=== PATIENT | female | born 1950 | race African-American/Black ===

== ENCOUNTER 2019-04-28 11:31 | Emergency (ER) | payer MEDICARE ==
--- NOTE | 2019-04-28 13:15 | ER Document Report ---
ED General - General Chief Complaint: Shortness Of Breath Stated Complaint: SHORTNESS OF BREATH Time Seen by Provider: 04/28/19 12:09 Primary Care Provider: [facility] [Provider Group] - Follow up as needed MANDY ALMAGUER MD [ACTIVE STAFF] - Follow up in 3-5 days FARHANA ALONSO MD [ACTIVE STAFF] - Follow up in 1 week TRAVEL OUTSIDE OF THE [place] IN LAST 30 DAYS: No - HPI Notes: Patient is a 68-year-old female that presents to the emergency department for chief complaint of shortness of breath. Patient states she has had increased shortness of breath over the last few days. She had a 13-hour car ride from [place] and arrived in town yesterday. Patient states that shortness of breath did increase over the car ride. She states it is worse with any exertion. She denies orthopnea. She denies any associated chest pain or palpitations. Patient denies history of DVT or PE. She is not on any blood thinning medications. She denies history of [place] in the past. She has been compliant with all home medications. Patient denies recent fever chills or cough. She does use albuterol inhaler daily for COPD. Patient is also complaining of bilateral eye watering for the last 6 months. She does not wear contacts or glasses. She denies injury to her eyes. She denies any associated pain or itching in her eyes. Patient reports having a normal stress test 1 year ago. She has no coronary stents or history of bypass. Past Medical History: Glaucoma, hypertension, CHF, COPD Past Surgical History: Negative Social History: Denies tobacco and alcohol use Family History: Reviewed and noncontributory for presenting illness Allergies: Reviewed, see documented allergy list. REVIEW OF SYSTEMS: CONSTITUTIONAL : No fever No chills No diaphoresis No recent illness EENT: No vision changes Watery eyes No congestion No sore throat CARDIOVASCULAR: No chest pain No palpitations RESPIRATORY: shortness of breath No cough No difficulty breathing GASTROINTESTINAL: No abdominal pain No nausea No vomiting No diarrhea GENITOURINARY: No dysuria No hematuria No difficulty urinating MUSCULOSKELETAL: No back pain No leg pain No arm pain SKIN: No rashes No lesions LYMPHATIC: No swollen, enlarged glands. NEUROLOGICAL: No lightheadedness No headache No weakness No paresthesias PSYCHIATRIC: No anxiety No depression PHYSICAL EXAMINATION: Vital signs reviewed, nursing noted reviewed. GENERAL: Well-appearing, well-nourished and in no acute distress. HEAD: Atraumatic, normocephalic. EYES: Slight increased tearing bilaterally, no purulent ocular discharge. No pain with eye movement. PERRLA. extraocular movements intact, sclera anicteric, conjunctiva are normal. ENT: nares patent, oropharynx clear without exudates. Moist mucous membranes. NECK: Normal range of motion, supple without lymphadenopathy LUNGS: Breath sounds have mild wheezing bilaterally. No rhonchi or rales. No respiratory distress. HEART: Regular rate and rhythm without murmurs +2/4 bilateral radial pulses. ABDOMEN: Soft, nontender, normoactive bowel sounds. No rebound, guarding, or rigidity. No masses appreciated. EXTREMITIES: Nontender, good range of motion, no pitting or edema. NEUROLOGICAL: No focal neurological deficits. Moves all extremities spontaneously Motor and sensory grossly intact on exam. PSYCH: Normal mood, normal affect. SKIN: Warm, Dry, normal turgor, no rashes or lesions noted on exposed skin - Related Data Allergies/Adverse Reactions: epinephrine Allergy (Verified 04/28/19 14:27) prednisone Allergy (Verified 04/28/19 14:27) Past Medical History - Social History Smoking Status: Former Smoker Family History: Reviewed & Not Pertinent Physical Exam - Vital signs Vitals: Temp Pulse Resp BP Pulse Ox 98.0 F 63 16 155/90 H 98 04/28/19 11:51 04/28/19 11:51 04/28/19 11:51 04/28/19 11:51 04/28/19 11:51 Course - Re-evaluation Re-evalutation: 04/28/19 13:14 Vitals reviewed. Nursing notes reviewed. Patient has some nonspecific T wave changes on EKG without ST elevation. There is no comparison EKG available. She does have some wheezing on auscultation and history of COPD. Patient will be given albuterol for symptom medic management. She has trace pretibial edema but states this is chronic and unchanged because of her history of CHF. Patient placed on telemetry monitoring. - Vital Signs Vital signs: Temp Pulse Resp BP Pulse Ox 98.0 F 63 21 H 194/104 H 100 04/28/19 11:51 04/28/19 11:51 04/28/19 16:16 04/28/19 15:00 04/28/19 16:16 - Laboratory Result Diagrams: 04/28/19 13:50 04/28/19 13:50 Laboratory results interpreted by me: 04/28/19 04/28/19 04/28/19 13:50 13:50 13:50 Hgb 11.6 L Hct 33.9 L RDW 16.6 H D-Dimer 0.55 H BUN 21 H Est GFR (Non-Af Amer) 56 L - EKG Interpretation by Me Additional EKG results interpreted by me: 04/28/19 13:15 Interpreted by myself 1143: Normal sinus rhythm, rate 62, left axis, LVH, T wave inversion lead III, aVF. No ST elevation Discharge - Discharge Clinical Impression: Shortness of breath, Pulmonary nodules, Watery eyes Condition: Stable Disposition: HOME, SELF-CARE Instructions: Dyspnea, Nonspecific ([facility]) Additional Instructions: Please return to the emergency department if you have any worsening, or concern of your symptoms. Please return to the emergency department if you develop chest pain, difficulty breathing, severe abdominal pain, or ongoing vomiting. Please follow-up with your primary care physician in 2-3 days and any other recommended physicians. If prescribed, take all medications as directed. If you have any questions or concerns do not hesitate to return the emergency department for evaluation. Please follow with Dr. Almaguer for evaluation of your watery eyes The CT scan today showed multiple small lung nodules which are all under 1 cm. you will need to have repeat imaging of your lungs to follow along with the size of these nodules, this is something that will be prescribed by your primary care provider and performed in 3 to 6 months. Referrals: [facility] [Provider Group] - Follow up as needed MANDY ALMAGUER MD [ACTIVE STAFF] - Follow up in 3-5 days FARHANA ALONSO MD [ACTIVE STAFF] - Follow up in 1 week
--- NOTE | 2019-04-28 13:35 | RADIOLOGY REPORT (SQ) ---
EXAM DESCRIPTION: CHEST SINGLE VIEW COMPLETED DATE/TIME: 04/28/2019 1:26 pm REASON FOR STUDY: shortness of breath COMPARISON: None. EXAM PARAMETERS: NUMBER OF VIEWS: One view. TECHNIQUE: Single frontal radiographic view of the chest acquired. RADIATION DOSE: NA LIMITATIONS: None. FINDINGS: LUNGS AND PLEURA: No opacities, masses or pneumothorax. No pleural effusion. MEDIASTINUM AND HILAR STRUCTURES: No masses. Contour normal. HEART AND VASCULAR STRUCTURES: Cardiomegaly. BONES: No acute findings. HARDWARE: None in the chest. OTHER: No other significant finding. IMPRESSION: Cardiomegaly without acute abnormality of the lungs in AP projection. TECHNICAL DOCUMENTATION: JOB ID: [id number] [employer]- All Rights Reserved Reading location - IP/workstation name: [email or web address]
[2019-04-28 14:08] LABS: ABSOLUTE EOSINOPHILS # (AUTO) 0.2 10^3/uL (0.0-0.6); ABSOLUTE LYMPHOCYTES (AUTO) 0.9 10^3/uL (0.5-4.7); ABSOLUTE MONOCYTES (AUTO) 0.4 10^3/uL (0.1-1.4); ABSOLUTE NEUT (AUTO) 2.4 10^3/uL (1.7-8.2); BASOPHILS % (AUTO) 0.9 % (0-2); EOSINOPHILS % (AUTO) 4.9 % (0-6); HEMATOCRIT 33.9 % (36.0-47.0); HEMOGLOBIN 11.6 g/dL (12.0-15.5); LYMPHOCYTES % (AUTO) 23.4 % (13-45); MEAN CORPUSCULAR HEMOGLOBIN 30.4 pg (27.0-33.4); MEAN CORPUSCULAR HGB CONC 34.1 g/dL (32.0-36.0); MEAN CORPUSCULAR VOLUME 89 fl (80-97); MONOCYTES % (AUTO) 9.8 % (3-13); PLATELET COUNT 215 10^3/uL (150-450); RED CELL DISTRIBUTION WIDTH 16.6 % (11.5-14.0); TOTAL CELLS COUNTED % (AUTO) 100 %
[2019-04-28 14:30] LABS: ALANINE AMINOTRANSFERASE 21 U/L (9-52); ALBUMIN 4.2 g/dL (3.5-5.0); ALKALINE PHOSPHATASE 58 U/L (38-126); ANION GAP 9 (5-19); ASPARTATE AMINO TRANSFERASE 27 U/L (14-36); BILIRUBIN,DIRECT 0.3 mg/dL (0.0-0.4); BILIRUBIN,TOTAL 0.8 mg/dL (0.2-1.3); BLOOD UREA NITROGEN 21 mg/dL (7-20); CALCIUM 9.8 mg/dL (8.4-10.2); CARBON DIOXIDE 26 mmol/L (22-30); CHLORIDE 105 mmol/L (98-107); GLUCOSE 98 mg/dL (75-110); POTASSIUM 4.4 mmol/L (3.6-5.0); SODIUM 139.6 mmol/L (137-145); TOTAL PROTEIN 7.7 g/dL (6.3-8.2)
[2019-04-28] MEDS ORDERED: IPRATROPIUM/ALBUTEROL 0.5-2.5 MG/3 ML AMPUL NEB ONE (14:42)
[2019-04-28 15:31] VITALS: BP 194/104
--- NOTE | 2019-04-28 16:31 | RADIOLOGY REPORT (SQ) ---
EXAM DESCRIPTION: CTA CHEST COMPLETED DATE/TIME: 04/28/2019 4:17 pm REASON FOR STUDY: PE study COMPARISON: None. TECHNIQUE: CT scan of the chest performed using helical scanning technique with dynamic intravenous contrast injection. Images reviewed with lung, soft tissue and bone windows. Reconstructed coronal and sagittal MPR images reviewed. Additional 3 dimensional post-processing performed to develop Maximal Intensity Projection images (MO P). All images stored on PACS. All CT scanners at this facility use dose modulation, iterative reconstruction, and/or weight based d osing when appropriate to reduce radiation dose to as low as reasonably achievable (ALARA). [facility]: Dose Right [facility]: CareDose [facility]: Dose Right [facility]: Teradose 4D [facility]: Ubiquigent CONTRAST TYPE AND DOSE: contrast/concentration: Isovue 350.00 mg/ml; Total Contrast Delivered: 66.0 ml; Total Saline Delivered: 80.0 ml Contrast bolus optimized for the pulmonary arteries. Not diagnostic for the aorta. RENAL FUNCTION: GFR > 60. RADIATION DOSE: CT Rad equipment meets quality standard of care and radiation dose reduction techniq ues were employed. CTDIvol: 14.3 - 23.2 mGy. DLP: 531 mGy-cm. . LIMITATIONS: Moderate patient motion -breathing artifact. FINDINGS: LUNGS AND PLEURA: No pneumothorax. Scattered parenchymal and subpleural ground-glass and subcentimeter solid nodules in both lungs. No consolidation or pleural effusion. Linear atelectasis in the left lower lobe. . AORTA AND GREAT VESSELS: No aneurysm. Contrast bolus not optimized for the aorta. HEART: No pericardial effusion. No significant coronary artery calcifications. PULMONARY ARTERIES: No emboli visualized in the central pulmonary arteries. Patient breathing motion limits evaluation of the segmental branches. HILAR AND MEDIASTINAL STRUCTURES: No identified masses or abnormal nodes. HARDWARE: None in the chest. UPPER ABDOMEN: Atrophic left kidney. Limited exam. THYROID AND OTHER SOFT TISSUES: No masses. No adenopathy. BONES: No acute or significant finding. 3D MIPS: Confirm above findings. OTHER: No other significant finding. IMPRESSION: No emboli visualized in the central pulmonary arteries. Patient breathing motion limits evaluation of the segmental branches. Scattered parenchymal and subpleural ground-glass and subcentimeter solid nodules in both lungs, nons pecific. No consolidation or pleural effusion. Linear atelectasis in the left lower lobe. COMMENT: Follow-up CT recommended in 3 to 4 months for pulmonary nodules. Quality ID # [id number]: Final reports with documentation of one or more dose reduction techniques (e.g., Au tomated exposure control, adjustment of the mA and/or kV according to patient size, use of iterative reconstruction technique) TECHNICAL DOCUMENTATION: JOB ID: [id number] [place]-72 2010 [employer]- All Rights Reserved Reading location - IP/workstation name: [email or web address]
--- NOTE | 2019-04-28 23:27 | EKG REPORT ---
SEVERITY:- ABNORMAL ECG - SINUS RHYTHM LEFT AXIS DEVIATION LEFT VENTRICULAR HYPERTROPHY NONSPECIFIC T ABNORMALITIES, INFERIOR LEADS : Confirmed by: Chasity Gutierrez MD 28-Apr-2019 23:26:54
== END 2019-04-28 17:18 | disposition home or self-care (01) ==
LOC: ER 11:31
DX: J44.9 Chronic obstructive pulmonary disease, unspecified (principal); Z79.899 Other long term (current) drug therapy; I11.0 Hypertensive heart disease with heart failure; I50.9 Heart failure, unspecified; R06.02 Shortness of breath; R91.8 Other nonspecific abnormal finding of lung field; H57.89 Other specified disorders of eye and adnexa; R60.0 Localized edema; Z86.69 Personal history of other diseases of the nervous system and sense organs; Z88.8 Allergy status to other drugs, medicaments and biological substances; Z87.891 Personal history of nicotine dependence
CPT/HCPCS: 93005; 94640; 99285; 36415; 85025; 80053; 84484; 85379; 71045; 71275; 93010; A9270; J7620

== ENCOUNTER 2019-05-15 23:21 | Emergency (ER) | payer MEDICARE, MEDICAID ==
[2019-05-16] MEDS ORDERED: IPRATROPIUM/ALBUTEROL 0.5-2.5 MG/3 ML AMPUL NEB ONE (00:32)
[2019-05-16 00:59] LABS: ABSOLUTE EOSINOPHILS # (AUTO) 0.2 10^3/uL (0.0-0.6); ABSOLUTE LYMPHOCYTES (AUTO) 1.1 10^3/uL (0.5-4.7); ABSOLUTE MONOCYTES (AUTO) 0.4 10^3/uL (0.1-1.4); ABSOLUTE NEUT (AUTO) 1.7 10^3/uL (1.7-8.2); BASOPHILS % (AUTO) 1.2 % (0-2); EOSINOPHILS % (AUTO) 5.9 % (0-6); HEMATOCRIT 33.1 % (36.0-47.0); HEMOGLOBIN 11.2 g/dL (12.0-15.5); LYMPHOCYTES % (AUTO) 31.5 % (13-45); MEAN CORPUSCULAR HEMOGLOBIN 30.4 pg (27.0-33.4); MEAN CORPUSCULAR HGB CONC 33.9 g/dL (32.0-36.0); MEAN CORPUSCULAR VOLUME 90 fl (80-97); MONOCYTES % (AUTO) 12.1 % (3-13); PLATELET COUNT 205 10^3/uL (150-450); RED BLOOD COUNT 3.68 10^6/uL (3.72-5.28); RED CELL DISTRIBUTION WIDTH 16.3 % (11.5-14.0); SEGMENTED NEUTROPHILS % (AUTO) 49.3 % (42-78); TOTAL CELLS COUNTED % (AUTO) 100 %; WHITE BLOOD COUNT 3.4 10^3/uL (4.0-10.5)
[2019-05-16 01:06] LABS: INTERNATIONAL RATION (INR) 0.97; PROTHROMBIN TIME 12.9 SEC (11.4-15.4)
[2019-05-16 01:07] LABS: PARTIAL THROMBOPLASTIN TIME 28.1 SEC (23.5-35.8)
[2019-05-16 01:18] LABS: ALANINE AMINOTRANSFERASE 23 U/L (9-52); ALBUMIN 4.1 g/dL (3.5-5.0); ALKALINE PHOSPHATASE 53 U/L (38-126); ANION GAP 7 (5-19); ASPARTATE AMINO TRANSFERASE 19 U/L (14-36); BILIRUBIN,DIRECT 0.2 mg/dL (0.0-0.4); BILIRUBIN,TOTAL 0.5 mg/dL (0.2-1.3); BLOOD UREA NITROGEN 19 mg/dL (7-20); CALCIUM 9.5 mg/dL (8.4-10.2); CARBON DIOXIDE 29 mmol/L (22-30); CHLORIDE 103 mmol/L (98-107); GLUCOSE 96 mg/dL (75-110); SODIUM 138.5 mmol/L (137-145); TOTAL PROTEIN 7.3 g/dL (6.3-8.2)
[2019-05-16] MEDS ORDERED: CLONIDINE HCL 0.1 MG TABLET PO ONE (01:21)
[2019-05-16 01:30] LABS: NT PRO BNP 242 pg/mL (5-900)
[2019-05-16 01:32] LABS: TROPONIN I < 0.012 ng/mL
--- NOTE | 2019-05-16 01:43 | RADIOLOGY REPORT (SQ) ---
EXAM DESCRIPTION: XR CHEST 1 VIEW COMPLETED DATE/TME: 05/16/2019 00:31 CLINICAL HISTORY: 68 years Female, SOB COMPARISON:Apr 28 2019, CR and CT NUMBER OF VIEWS/TECHNIQUE: 1/AP FINDINGS: Small stable blunting of the right costophrenic angle. Atherosclerosis. Mildly enlarged cardiac silhouette. Intact bony thorax. IMPRESSION: 1. No acute cardiopulmonary findings. 2. Please also see abnormal CTA chest, 04/28/2019.
--- NOTE | 2019-05-16 02:04 | ER Document Report ---
ED Respiratory Problem - General Chief Complaint: Shortness Of Breath Stated Complaint: ASTHMA,AMAURY HORSE IN LEGS AND RIGHT HAND Time Seen by Provider: 05/16/19 00:23 Mode of Arrival: Ambulatory Information source: Patient TRAVEL OUTSIDE OF THE [place] IN LAST 30 DAYS: No - HPI Patient complains to provider of: COPD, Short of breath Onset: Just prior to arrival Duration: Gone now Quality of pain: No pain Severity: None Pain Level: Denies Context: Hx COPD. denies: DVT Short of Breath: Mild Associated symptoms: Other - Leg cramps. Similar symptoms previously: Yes Recently seen / treated by doctor: No - Related Data Allergies/Adverse Reactions: epinephrine Allergy (Verified 04/28/19 14:27) prednisone Allergy (Verified 04/28/19 14:27) Past Medical History - General Information source: Patient - Social History Smoking Status: Unknown if Ever Smoked Family History: Reviewed & Not Pertinent Renal/ Medical History: Denies: Hx Peritoneal Dialysis Review of Systems - Review of Systems Constitutional: No symptoms reported EENT: No symptoms reported Cardiovascular: No symptoms reported Respiratory: Short of breath Gastrointestinal: No symptoms reported Genitourinary: No symptoms reported Female Genitourinary: No symptoms reported Musculoskeletal: No symptoms reported Skin: No symptoms reported Hematologic/Lymphatic: No symptoms reported Neurological/Psychological: No symptoms reported -: Yes All other systems reviewed and negative Physical Exam - Vital signs Vitals: Temp Pulse Resp BP Pulse Ox 98.3 F 67 18 161/90 H 95 05/15/19 23:49 05/15/19 23:49 05/15/19 23:49 05/15/19 23:49 05/15/19 23:49 Interpretation: Normal - General General appearance: Appears well, Alert - HEENT Head: Normocephalic, Atraumatic Eyes: Normal Pupils: PERRL - Respiratory Respiratory status: No respiratory distress Chest status: Nontender Breath sounds: Normal Chest palpation: Normal - Cardiovascular Rhythm: Regular Heart sounds: Normal auscultation Murmur: No - Abdominal Inspection: Normal Distension: No distension Bowel sounds: Normal Tenderness: Nontender Organomegaly: No organomegaly - Back Back: Normal, Nontender - Extremities General upper extremity: Normal inspection, Nontender, Normal color, Normal ROM, Normal temperature General lower extremity: Normal inspection, Nontender, Normal color, Normal ROM, Normal temperature, Normal weight bearing. No: Tara's sign - Neurological Neuro grossly intact: Yes Cognition: Normal Orientation: AAOx4 [place] Coma Scale Eye Opening: Spontaneous [place] Coma Scale Verbal: Oriented [place] Coma Scale Motor: Obeys Commands Sahra Coma Scale Total: 15 Speech: Normal Motor strength normal: LUE, RUE, LLE, RLE Sensory: Normal - Psychological Associated symptoms: Normal affect, Normal mood - Skin Skin Temperature: Warm Skin Moisture: Dry Skin Color: Normal Course - Vital Signs Vital signs: Temp Pulse Resp BP Pulse Ox 98.9 F 67 12 156/92 H 97 05/16/19 02:51 05/15/19 23:49 05/16/19 02:51 05/16/19 02:51 05/16/19 02:51 - Laboratory Result Diagrams: 05/16/19 00:50 05/16/19 00:50 Laboratory results interpreted by me: 05/16/19 05/16/19 00:50 00:50 WBC 3.4 L RBC 3.68 L Hgb 11.2 L Hct 33.1 L RDW 16.3 H Est GFR ( Amer) 52 L Est GFR (Non-Af Amer) 43 L - Diagnostic Test Radiology reviewed: Reports reviewed Discharge - Discharge Clinical Impression: COPD exacerbation Condition: Stable Disposition: HOME, SELF-CARE Instructions: Chronic Obstructive Lung Disease ([facility]) Additional Instructions: Please follow-up with your primary doctor in the morning. Return to the ED if your condition worsens.
[2019-05-16 02:55] VITALS: BP 156/92
== END 2019-05-16 02:58 | disposition home or self-care (01) ==
LOC: ER 23:21
DX: J44.1 Chronic obstructive pulmonary disease with (acute) exacerbation (principal)
CPT/HCPCS: 94640; 99285; 36415; 85025; 85610; 85730; 80053; 84484; 83880; 71045; A9270 ×2; J7620

== ENCOUNTER 2019-06-06 21:44 | Emergency (ER) | payer MEDICARE ==
[2019-06-07] MEDS ORDERED: ALBUTEROL SULFATE 0.083% NEB 2.5 MG/3 ML AMPUL NEB ONE (02:14)
[2019-06-07] MEDS ORDERED: ASPIRIN 81 MG TABLET, CHEWABLE PO ONE (02:14)
[2019-06-07 03:10] LABS: ABSOLUTE EOSINOPHILS # (AUTO) 0.3 10^3/uL (0.0-0.6); ABSOLUTE LYMPHOCYTES (AUTO) 1.2 10^3/uL (0.5-4.7); ABSOLUTE MONOCYTES (AUTO) 0.4 10^3/uL (0.1-1.4); ABSOLUTE NEUT (AUTO) 1.6 10^3/uL (1.7-8.2); BASOPHILS % (AUTO) 1.2 % (0-2); EOSINOPHILS % (AUTO) 8.5 % (0-6); HEMATOCRIT 33.7 % (36.0-47.0); HEMOGLOBIN 11.3 g/dL (12.0-15.5); LYMPHOCYTES % (AUTO) 33.4 % (13-45); MEAN CORPUSCULAR HGB CONC 33.5 g/dL (32.0-36.0); MEAN CORPUSCULAR VOLUME 90 fl (80-97); PLATELET COUNT 218 10^3/uL (150-450); RED BLOOD COUNT 3.76 10^6/uL (3.72-5.28); RED CELL DISTRIBUTION WIDTH 16.3 % (11.5-14.0); SEGMENTED NEUTROPHILS % (AUTO) 44.9 % (42-78); TOTAL CELLS COUNTED % (AUTO) 100 %; WHITE BLOOD COUNT 3.6 10^3/uL (4.0-10.5)
[2019-06-07 03:26] LABS: ALANINE AMINOTRANSFERASE 26 U/L (9-52); ALBUMIN 4.1 g/dL (3.5-5.0); ALKALINE PHOSPHATASE 62 U/L (38-126); ANION GAP 6 (5-19); ASPARTATE AMINO TRANSFERASE 21 U/L (14-36); BILIRUBIN,DIRECT 0.1 mg/dL (0.0-0.4); BILIRUBIN,TOTAL 0.5 mg/dL (0.2-1.3); BLOOD UREA NITROGEN 15 mg/dL (7-20); CALCIUM 9.6 mg/dL (8.4-10.2); CARBON DIOXIDE 26 mmol/L (22-30); CHLORIDE 105 mmol/L (98-107); CREATINE KINASE 155 U/L (30-135); GLUCOSE 109 mg/dL (75-110); POTASSIUM 3.8 mmol/L (3.6-5.0); TOTAL PROTEIN 7.2 g/dL (6.3-8.2)
[2019-06-07 03:38] LABS: CREATINE KINASE MB 1.32 ng/mL (<4.55); NT PRO BNP 290 pg/mL (5-900); TROPONIN I < 0.012 ng/mL
--- NOTE | 2019-06-07 03:58 | RADIOLOGY REPORT (SQ) ---
CLINICAL HISTORY: SOB, wheezing COMPARISON: May 16, 2019. TECHNIQUE: XR CHEST 2 VIEWS 06/07/2019 2:14 AM CDT FINDINGS: The heart is enlarged. Lungs are clear without consolidation, atelectasis, mass or edema. There is no pleural effusion. There is no pneumothorax. There are no acute osseous findings. IMPRESSION: Clear lungs.
--- NOTE | 2019-06-07 04:19 | ER Document Report ---
Entered by MELLISSA BETHEA SCRIBE 06/07/19 0206 Acting as scribe for:JUHI WHITTINGTON DO ED Respiratory Problem - General Chief Complaint: Breathing Difficulty Stated Complaint: TROUBLE BREATHING Time Seen by Provider: 06/07/19 01:44 Information source: Patient Notes: 68-year-old female who presents to the emergency department today with complaints of shortness of breath with an associated cough for the last x5 days. Patient states she has had chills but no fevers. Patient states she feels like she is congested in her chest and has had an associated chest tightness as well as tightness in her throat. Patient states she was admitted to this hospital a few weeks ago for a COPD exacerbation. Patient is unable to answer how her symptoms today compare to that admission. Patient states her cough has been productive with green sputum. Patient denies any blood in her sputum. TRAVEL OUTSIDE OF THE [place] IN LAST 30 DAYS: No - Related Data Allergies/Adverse Reactions: epinephrine Allergy (Verified 04/28/19 14:27) prednisone Allergy (Verified 04/28/19 14:27) Past Medical History - General Information source: Patient - Social History Smoking Status: Former Smoker Cigarette use (# per day): No Chew tobacco use (# tins/day): No Frequency of alcohol use: None Drug Abuse: None Lives with: Family Family History: Reviewed & Not Pertinent - Past Medical History Cardiac Medical History: Reports: Hx Congestive Heart Failure Pulmonary Medical History: Reports: Hx Asthma, Hx COPD Surgical Hx: Negative Review of Systems - Review of Systems Constitutional: See HPI, Chills. denies: Fever EENT: No symptoms reported Cardiovascular: See HPI, Chest pain Respiratory: See HPI, Cough, Short of breath, Wheezing, Other - chest feels tig ht Gastrointestinal: No symptoms reported Genitourinary: No symptoms reported Female Genitourinary: No symptoms reported Musculoskeletal: No symptoms reported Skin: No symptoms reported Hematologic/Lymphatic: No symptoms reported Neurological/Psychological: No symptoms reported -: Yes All other systems reviewed and negative Physical Exam - Vital signs Vitals: Temp Pulse Resp BP Pulse Ox 97.6 F 73 18 166/86 H 96 06/06/19 22:39 06/06/19 22:39 06/06/19 22:39 06/06/19 22:39 06/06/19 22:39 - Notes Notes: PHYSICAL EXAM GENERAL: Alert, interacts well. No acute distress. HEAD: Normocephalic, atraumatic. EYES: Pupils equal, round, and reactive to light. Extraocular movements intact. ENT: Oral mucosa moist, tongue midline. No posterior oropharynx erythema, exudate, or tonsilar hypertrophy. NECK: Full range of motion. Supple. Trachea midline. LUNGS: Clear to auscultation bilaterally, no wheezes, rales, or rhonchi. No respiratory distress. HEART: Regular rate and rhythm. No murmurs, gallops, or rubs. ABDOMEN: Soft, non-tender. Non-distended. Bowel sounds present in all 4 quadrants. No guarding, rigidity, or rebound. BACK: Increased thoracic kyphosis. EXTREMITIES: Moves all 4 extremities spontaneously. No edema, radial and dorsalis pedis pulses 2/4 bilaterally. No cyanosis. NEUROLOGICAL: Alert and oriented x3. Normal speech. PSYCH: Normal affect, normal mood. SKIN: Warm, dry, normal turgor. No rashes or lesions noted. Course - Re-evaluation Re-evalutation: 06/07/19 04:08 CBC shows slight leukopenia with white count of 3.6, mild anemia with hemoglobin of 11.3, this is unchanged for the past month and a half, sodium minimally low, cardiac enzymes negative, chest x-ray shows no acute process. Patient does not appear short of breath during my examination, vital signs do not support any hypoxia, tachypnea or tachycardia. Given the patient's history of asthma and COPD patient will be started on a burst of steroids, encouraged to use inhalers and discharged to home. 06/07/19 04:18 Patient states she is allergic to prednisone, states that she has a headache and muscle cramps. Discussed with patient that this is not a true allergic reaction. More likely a side effect. Started the patient on prednisolone instead. 06/07/19 04:18 On recheck patient states she feels much better, there is no wheezing in her lungs, she has not been tachypneic or tachycardic or hypoxic. Discharged home. - Vital Signs Vital signs: Temp Pulse Resp BP Pulse Ox 97.6 F 73 18 166/86 H 96 06/06/19 22:39 06/06/19 22:39 06/06/19 22:39 06/06/19 22:39 06/06/19 22:39 - Laboratory Result Diagrams: 06/07/19 03:00 06/07/19 03:00 Laboratory results interpreted by me: 06/07/19 06/07/19 03:00 03:00 WBC 3.6 L Hgb 11.3 L Hct 33.7 L RDW 16.3 H Eosinophils % 8.5 H Absolute Neutrophils 1.6 L Sodium 136.9 L Creatine Kinase 155 H - EKG Interpretation by Me Additional EKG results interpreted by me: 06/07/19 04:10 EKG shows sinus rhythm at a rate of 78, left axis deviation, left ventricular hypertrophy, ST segment elevations isolated to V2, no other ST segment elevations or depressions, no T wave inversions per my interpretation. Discharge - Discharge Clinical Impression: Acute asthma exacerbation Qualifiers: Asthma severity: mild Asthma persistence: intermittent Qualified Code(s): J45.21 - Mild intermittent asthma with (acute) exacerbation Hypertension Qualifiers: Hypertension type: unspecified Qualified Code(s): I10 - Essential (primary) hypertension Condition: Stable Disposition: HOME, SELF-CARE Additional Instructions: Please use your inhaler 2 puffs every 4 hours as needed. If your symptoms are not improving within the next 2 days or if your symptoms worsen at any point please take the steroids as directed until they are gone. The steroid I have written you for is different than the prednisone from which you have had headaches and muscle cramps in the past. You may not get headaches and muscle cramps from this. You did not have a true allergic reaction to steroids in the past. Return for fevers, worsening shortness of breath, chest pain or any new or jeet rning symptoms. Prescriptions: Prednisolone 20 mg PO DAILY #20 tablet I personally performed the services described in the documentation, reviewed and edited the documentation which was dictated to the scribe in my presence, and it accurately records my words and actions.
[2019-06-07 04:25] VITALS: BP 161/85
--- NOTE | 2019-06-07 23:11 | EKG REPORT ---
SEVERITY:- ABNORMAL ECG - SINUS RHYTHM LEFT ATRIAL ABNORMALITY LEFT AXIS DEVIATION LEFT VENTRICULAR HYPERTROPHY : Confirmed by: Real Anand 07-Jun-2019 23:10:30
== END 2019-06-07 04:37 | disposition home or self-care (01) ==
LOC: ER 21:44
DX: J45.21 Mild intermittent asthma with (acute) exacerbation (principal); J44.9 Chronic obstructive pulmonary disease, unspecified; I10 Essential (primary) hypertension; R06.02 Shortness of breath; R05 Cough; R09.89 Other specified symptoms and signs involving the circulatory and respiratory systems; Z87.891 Personal history of nicotine dependence; I50.9 Heart failure, unspecified; R51 Headache; R25.2 Cramp and spasm
CPT/HCPCS: 93005; 94640; 99285; 36415; 82553; 82550; 85025; 80053; 84484; 83880; 71046; 93010; A9270 ×2

== ENCOUNTER 2019-07-07 08:47 | Emergency (ER) | payer MEDICARE ==
[2019-07-07] MEDS ORDERED: CLONIDINE HCL 0.2 MG TABLET PO ONE (09:25)
--- NOTE | 2019-07-07 09:33 | ER Document Report ---
Entered by MELLISSA BETHEA SCRIBE 07/07/19 0930 Acting as scribe for:CORIE BARCENAS MD ED Respiratory Problem - General Chief Complaint: Shortness Of Breath Stated Complaint: SHORTNESS OF BREATH Time Seen by Provider: 07/07/19 09:12 Mode of Arrival: Ambulatory Information source: Patient Notes: Patient is a 68 year old female that presents to the emergency department today with complaints of shortness of breath for the last x3 days with an associated cough. Patient states she is bringing up thick malodorous white sputum with her cough. Patient states her proair inhaler has improved her shortness of breath. Patient states she moved here from [place] about x3 months ago and has not yet gotten a PCP here. Patient reports she has not run out of her medications despite not having a PCP. Patient reports taking 50 mg of hydralazine at 0400 this morning and 0.3 mg of clonidine 0600 this morning. Patient mentions having chills but denies fevers. TRAVEL OUTSIDE OF THE [place] IN LAST 30 DAYS: No - Related Data Allergies/Adverse Reactions: epinephrine Allergy (Verified 07/07/19 08:49) prednisone Allergy (Verified 07/07/19 08:49) Past Medical History - General Information source: Patient - Social History Smoking Status: Former Smoker Cigarette use (# per day): No Frequency of alcohol use: None Drug Abuse: None Lives with: Family Family History: Reviewed & Not Pertinent - Past Medical History Cardiac Medical History: Reports: Hx Congestive Heart Failure, Hx Hypertension Pulmonary Medical History: Reports: Hx Asthma, Hx COPD Review of Systems - Review of Systems Constitutional: See HPI, Chills. denies: Fever EENT: No symptoms reported Cardiovascular: No symptoms reported Respiratory: See HPI, Cough, Short of breath, Sputum Gastrointestinal: No symptoms reported Genitourinary: No symptoms reported Female Genitourinary: No symptoms reported Musculoskeletal: No symptoms reported Skin: No symptoms reported Hematologic/Lymphatic: No symptoms reported Neurological/Psychological: No symptoms reported -: Yes All other systems reviewed and negative Physical Exam - Vital signs Vitals: Temp Pulse Resp BP Pulse Ox 98.2 F 64 16 180/90 H 97 07/07/19 08:52 07/07/19 08:52 07/07/19 08:52 07/07/19 08:52 07/07/19 08:52 - Notes Notes: Physical Exam: General: Alert, appears well. HEENT: Normocephalic. Atraumatic. PERRL. Extraocular movements intact. Oropharynx clear. Neck: Supple. Non-tender. Respiratory: No respiratory distress. Clear and equal breath sounds bilaterally. Cardiovascular: Regular rate and rhythm. Abdominal: Normal Inspection. Non-tender. No distension. Normal Bowel Sounds. Back: Increased thoracic kyphosis Extremities: Moves all four extremities. Upper extremities: Normal inspection. Normal ROM. Lower extremities: Normal inspection. No edema. Normal ROM. Neurological: Normal cognition. AAOx4. Normal speech. Psychological: Normal affect. Normal Mood. Skin: Warm. Dry. Normal color. Course - Re-evaluation Re-evalutation: 07/07/19 13:20 At this time the patient's blood pressure using a manual cuff was 160/100. Her pulse oximetry is 98% on room air. Her chest x-ray does not show any acute abnormalities. Her white blood cell count is quite low and does not suggest an infectious process. I really did not hear much if any wheezing on initial auscultation. I feel it is safe to send patient home and let her continue all of her regular medications including her inhalers as needed. Patient states that she has plenty of medicine and her pro-air inhaler and does not need another prescrip tion. She is encouraged to obtain a local medical doctor to help manage her medical problems. She is also encouraged to get a blood pressure cuff so that she can monitor her blood pressure at home. - Vital Signs Vital signs: Temp Pulse Resp BP Pulse Ox 98.2 F 64 15 198/96 H 100 07/07/19 08:52 07/07/19 08:52 07/07/19 10:05 07/07/19 10:05 07/07/19 10:05 - Laboratory Result Diagrams: 07/07/19 09:35 07/07/19 09:35 Laboratory results interpreted by me: 07/07/19 07/07/19 09:35 09:35 WBC 2.8 L RBC 3.60 L Hgb 10.9 L Hct 32.3 L RDW 16.7 H [place] % (Auto) 13.1 H Eos % (Auto) 7.8 H Absolute Neuts (auto) 1.3 L Carbon Dioxide 32 H BUN 22 H Est GFR ( Amer) 54 L Est GFR (MDRD) Non-Af 45 L Creatine Kinase 180 H - Diagnostic Test Radiology reviewed: Image reviewed, Reports reviewed - Chest x-ray shows cardiomegaly with no other abnormalities. - EKG Interpretation by Me EKG shows normal: Sinus rhythm, [place], Intervals, QRS Complexes, ST-T Waves Rate: Normal - 56 Rhythm: NSR Voltage: Consistant with LVH Discharge - Discharge Clinical Impression: Bronchitis High blood pressure Qualifiers: Hypertension type: essential hypertension Qualified Code(s): I10 - Essential (primary) hypertension Condition: Stable Disposition: HOME, SELF-CARE Additional Instructions: Bronchitis You have acute bronchitis. This disease is an infection or inflammation of the air passageways in your lungs. Symptoms usually include cough, low grade fever, shortness of breath, and wheezing. The cough usually persists for a couple of weeks. Most cases of bronchitis get better without antibiotics. We prescribe antibiotics when we believe bacteria are damaging your airways, or if there's high risk the bronchitis will worsen into pneumonia. Increase your fluid intake. A cool mist humidifier may make your lungs more comfortable. An expectorant (cough medicine that loosens phlegm) can help. If you smoke, STOP!!! Recovery from bronchitis can be somewhat slow, but you should see improvement within a day or two. Repeated episodes of bronchitis may result in lung damage -- for example, chronic bronchitis, recurrent pneumonias, or emphysema. Call the doctor if you develop increasing fever, shortness of breath, chest pain, bloody sputum, or otherwise worsen. If you have not improved at all after several days, contact the physician. Be sure you do not miss any of your regular medications. Try taking the generic version of Delsym DM to help control your coughing. Use your inhaler for wheezing as needed. Check your blood pressure at least on a daily basis to be sure that you have your blood pressure under control. Follow-up with a local medical doctor to help manage your blood pressure and marti athing problems. RETURN TO THE EMERGENCY ROOM IF ANY NEW OR WORSENING SYMPTOMS. Stephania Attestation: 07/07/19 09:51 I personally performed the services described in the documentation, reviewed and edited the documentation which was dictated to the scribe in my presence, and it accurately records my words and actions. I personally performed the services described in the documentation, reviewed and edited the documentation which was dictated to the scribe in my presence, and it accurately records my words and actions.
--- NOTE | 2019-07-07 09:59 | RADIOLOGY REPORT (SQ) ---
EXAM DESCRIPTION: CHEST SINGLE VIEW COMPLETED DATE/TIME: 07/07/2019 9:46 am REASON FOR STUDY: SOB COMPARISON: 06/07/2019 NUMBER OF VIEWS: One view. TECHNIQUE: Single frontal radiographic view of the chest acquired. LIMITATIONS: None. FINDINGS: LUNGS AND PLEURA: No opacities, masses or pneumothorax. No pleural effusion. MEDIASTINUM AND HILAR STRUCTURES: No masses. Contour normal. HEART AND VASCULAR STRUCTURES: Heart is enlarged. No failure. BONES: No acute findings. HARDWARE: None in the chest. OTHER: No other significant finding. IMPRESSION: Cardiomegaly. No failure. No consolidation. TECHNICAL DOCUMENTATION: JOB ID: [id number] [employer]- All Rights Reserved Reading location - IP/workstation name: [email or web address]
[2019-07-07 10:09] LABS: APPEARANCE,URINE CLEAR; BILIRUBIN,URINE NEGATIVE (NEGATIVE); COLOR,URINE STRAW; GLUCOSE, URINE NEGATIVE (NEGATIVE); KETONES,URINE NEGATIVE (NEGATIVE); LEUKOCYTE ESTERASE,URINE NEGATIVE (NEGATIVE); NITRITE,URINE NEGATIVE (NEGATIVE); PROTEIN,URINE NEGATIVE (NEGATIVE); URINE SPECIFIC GRAVITY 1.009; UROBILINOGEN,URINE NEGATIVE mg/dL (<2.0)
[2019-07-07 10:10] LABS: ABSOLUTE EOSINOPHILS # (AUTO) 0.2 10^3/uL (0.0-0.6); ABSOLUTE LYMPHOCYTES (AUTO) 0.9 10^3/uL (0.5-4.7); ABSOLUTE MONOCYTES (AUTO) 0.4 10^3/uL (0.1-1.4); ABSOLUTE NEUT (AUTO) 1.3 10^3/uL (1.7-8.2); EOSINOPHILS % (AUTO) 7.8 % (0-6); HEMATOCRIT 32.3 % (36.0-47.0); HEMOGLOBIN 10.9 g/dL (12.0-15.5); LYMPHOCYTES % (AUTO) 32.4 % (13-45); MEAN CORPUSCULAR HEMOGLOBIN 30.4 pg (27.0-33.4); MEAN CORPUSCULAR HGB CONC 33.8 g/dL (32.0-36.0); MEAN CORPUSCULAR VOLUME 90 fl (80-97); MONOCYTES % (AUTO) 13.1 % (3-13); PLATELET COUNT 243 10^3/uL (150-450); RED CELL DISTRIBUTION WIDTH 16.7 % (11.5-14.0); SEGMENTED NEUTROPHILS % (AUTO) 45.7 % (42-78); TOTAL CELLS COUNTED % (AUTO) 100 %; WHITE BLOOD COUNT 2.8 10^3/uL (4.0-10.5)
[2019-07-07 10:32] LABS: ALBUMIN 4.2 g/dL (3.5-5.0); ALKALINE PHOSPHATASE 56 U/L (38-126); ANION GAP 6 (5-19); ASPARTATE AMINO TRANSFERASE 27 U/L (14-36); BILIRUBIN,DIRECT 0.3 mg/dL (0.0-0.4); BILIRUBIN,TOTAL 0.6 mg/dL (0.2-1.3); BLOOD UREA NITROGEN 22 mg/dL (7-20); CALCIUM 9.5 mg/dL (8.4-10.2); CARBON DIOXIDE 32 mmol/L (22-30); CHLORIDE 101 mmol/L (98-107); CREATINE KINASE 180 U/L (30-135); GLUCOSE 99 mg/dL (75-110); POTASSIUM 4.2 mmol/L (3.6-5.0); TOTAL PROTEIN 7.7 g/dL (6.3-8.2)
[2019-07-07 10:44] LABS: CREATINE KINASE MB 1.51 ng/mL (<4.55)
[2019-07-07 10:48] LABS: TROPONIN I < 0.012 ng/mL
--- NOTE | 2019-07-07 13:18 | EKG REPORT ---
SEVERITY:- ABNORMAL ECG - SINUS RHYTHM LEFT VENTRICULAR HYPERTROPHY : Confirmed by: Calixto Torres MD 07-Jul-2019 13:17:06
[2019-07-07 14:26] VITALS: BP 186/112
== END 2019-07-07 14:28 | disposition home or self-care (01) ==
LOC: ER 08:47
DX: J44.0 Chronic obstructive pulmonary disease with (acute) lower respiratory infection (principal); R06.02 Shortness of breath; R05 Cough; Z79.899 Other long term (current) drug therapy; Z87.891 Personal history of nicotine dependence; I50.9 Heart failure, unspecified; I11.0 Hypertensive heart disease with heart failure
CPT/HCPCS: 93005; 99285; 36415; 82553; 82550; 83735; 85025; 80053; 81001; 84484; 71045; 93010; A9270

== ENCOUNTER 2019-08-07 02:37 | Emergency (ER) | payer MEDICARE ==
[2019-08-07] MEDS ORDERED: DEXAMETHASONE SOD PHOS INJ 10 MG/1 ML VIAL IV ONE (04:47)
[2019-08-07] MEDS: ALBUTEROL SULFATE 0.083% NEB 2.5 MG/3 ML AMPUL NEB ONE ×2 (05:07→05:12)
--- NOTE | 2019-08-07 05:14 | ER Document Report ---
ED Medical Screen (RME) - General Chief Complaint: Breathing Difficulty Stated Complaint: TROUBLE BREATHING/HEADACHE Time Seen by Provider: 08/07/19 05:06 Notes: 68-year-old female with chief complaint of shortness of breath. She states that she always has a cough and also some shortness of breath but she feels like it is harder to catch her breath over the past couple of days. She denies fever, chest pain, swelling in her legs. She states her blood pressures have been really elevated recently. She states she has not been taking her Lasix, she does have a history of CHF, COPD, asthma. She is not on home oxygen. She states she is only taking her clonidine and hydralazine along with intermittent albuterol. TRAVEL OUTSIDE OF THE [place] IN LAST 30 DAYS: No - Related Data Allergies/Adverse Reactions: epinephrine Allergy (Verified 07/07/19 08:49) prednisone Allergy (Verified 07/07/19 08:49) Past Medical History - Social History Frequency of alcohol use: None - Past Medical History Cardiac Medical History: Reports: Hx Congestive Heart Failure, Hx Hypertension Pulmonary Medical History: Reports: Hx Asthma, Hx COPD Renal/ Medical History: Denies: Hx Peritoneal Dialysis Physical Exam - Vital signs Vitals: Temp Pulse Resp BP Pulse Ox 97.7 F 63 20 179/92 H 99 08/07/19 02:50 08/07/19 02:50 08/07/19 02:50 08/07/19 02:50 08/07/19 02:50 - Respiratory Respiratory status: No respiratory distress Breath sounds: Normal. No: Decreased air movement, Wheezing Course - Re-evaluation Re-evalutation: Patient with no tachypnea, no wheezing, no respiratory distress on evaluation. She is very hypertensive and reporting dyspnea especially dyspnea on exertion. She does have a history of CHF and has not been taking her Lasix. Work-up pending. I have greeted and performed a rapid initial assessment of this patient. A comprehensive ED assessment and evaluation of the patient, analysis of test results and completion of the medical decision making process will be conducted by additional ED providers. - Vital Signs Vital signs: Temp Pulse Resp BP Pulse Ox 97.9 F 61 20 175/86 H 99 08/07/19 03:45 08/07/19 03:45 08/07/19 03:45 08/07/19 03:45 08/07/19 03:45
[2019-08-07 05:32] LABS: ABSOLUTE EOSINOPHILS # (AUTO) 0.3 10^3/uL (0.0-0.6); ABSOLUTE LYMPHOCYTES (AUTO) 1.4 10^3/uL (0.5-4.7); ABSOLUTE MONOCYTES (AUTO) 0.4 10^3/uL (0.1-1.4); ABSOLUTE NEUT (AUTO) 1.4 10^3/uL (1.7-8.2); BASOPHILS % (AUTO) 0.8 % (0-2); EOSINOPHILS % (AUTO) 8.6 % (0-6); HEMOGLOBIN 10.9 g/dL (12.0-15.5); LYMPHOCYTES % (AUTO) 39.5 % (13-45); MEAN CORPUSCULAR HEMOGLOBIN 30.9 pg (27.0-33.4); MEAN CORPUSCULAR HGB CONC 34.2 g/dL (32.0-36.0); MEAN CORPUSCULAR VOLUME 90 fl (80-97); MONOCYTES % (AUTO) 11.4 % (3-13); PLATELET COUNT 259 10^3/uL (150-450); RED BLOOD COUNT 3.54 10^6/uL (3.72-5.28); RED CELL DISTRIBUTION WIDTH 15.9 % (11.5-14.0); SEGMENTED NEUTROPHILS % (AUTO) 39.7 % (42-78); TOTAL CELLS COUNTED % (AUTO) 100 %; WHITE BLOOD COUNT 3.6 10^3/uL (4.0-10.5)
[2019-08-07 05:49] LABS: ALBUMIN 4.1 g/dL (3.5-5.0); ALKALINE PHOSPHATASE 57 U/L (38-126); ANION GAP 7 (5-19); ASPARTATE AMINO TRANSFERASE 23 U/L (14-36); BILIRUBIN,DIRECT 0.1 mg/dL (0.0-0.4); BILIRUBIN,TOTAL 0.6 mg/dL (0.2-1.3); BLOOD UREA NITROGEN 17 mg/dL (7-20); CALCIUM 9.7 mg/dL (8.4-10.2); CARBON DIOXIDE 30 mmol/L (22-30); CHLORIDE 103 mmol/L (98-107); GLUCOSE 96 mg/dL (75-110); POTASSIUM 3.7 mmol/L (3.6-5.0)
--- NOTE | 2019-08-07 05:51 | RADIOLOGY REPORT (SQ) ---
EXAM DESCRIPTION: XR CHEST 1 VIEW COMPLETED DATE/TME: 08/07/2019 04:47 CLINICAL HISTORY: 68 years Female, Dyspnea, wheezing COMPARISON:Jul 07 2019 NUMBER OF VIEWS/TECHNIQUE: 1/AP FINDINGS: Increased lung volume, small chronic blunting of the right costophrenic angle, clear parenchyma, prominent cardiac silhouette, and intact bony thorax.Atherosclerotic vascular disease. IMPRESSION: No acute cardiopulmonary findings.
[2019-08-07 06:01] LABS: NT PRO BNP 337 pg/mL (5-900); TROPONIN I < 0.012 ng/mL
--- NOTE | 2019-08-07 07:11 | ER Document Report ---
ED Respiratory Problem - General Chief Complaint: Breathing Difficulty Stated Complaint: TROUBLE BREATHING/HEADACHE Time Seen by Provider: 08/07/19 05:06 Information source: Patient Notes: 68 year old female awoke with cough and wheeze and sob. No fever or chills. H/O same. No chest pain. She denies any h/o heart disease. Former smoker. TRAVEL OUTSIDE OF THE [place] IN LAST 30 DAYS: No - HPI Patient complains to provider of: Asthma, COPD Onset: Last week Quality of pain: No pain Severity: Moderate Pain Level: Denies Short of Breath: Moderate Cough: Productive Sputum amount: Scant Sputum color: Clear Sputum consistency: Thick At home treatment: Bronchodilators Associated symptoms: None - Related Data Allergies/Adverse Reactions: epinephrine Allergy (Verified 07/07/19 08:49) prednisone Allergy (Verified 07/07/19 08:49) Past Medical History - General Information source: Patient - Social History Smoking Status: Former Smoker Frequency of alcohol use: None Family History: Reviewed & Not Pertinent Patient has suicidal ideation: No Patient has homicidal ideation: No - Past Medical History Cardiac Medical History: Reports: Hx Congestive Heart Failure, Hx Hypertension Pulmonary Medical History: Reports: Hx Asthma, Hx COPD Renal/ Medical History: Denies: Hx Peritoneal Dialysis Review of Systems - Review of Systems Constitutional: No symptoms reported EENT: No symptoms reported Cardiovascular: No symptoms reported Respiratory: See HPI, Cough Gastrointestinal: No symptoms reported Genitourinary: No symptoms reported Female Genitourinary: No symptoms reported Musculoskeletal: No symptoms reported Skin: No symptoms reported Hematologic/Lymphatic: No symptoms reported Neurological/Psychological: No symptoms reported Physical Exam - Vital signs Vitals: Temp Pulse Resp BP Pulse Ox 97.7 F 63 20 179/92 H 99 08/07/19 02:50 08/07/19 02:50 08/07/19 02:50 08/07/19 02:50 08/07/19 02:50 Interpretation: Normal - General General appearance: Appears well, Alert - HEENT Head: Normocephalic, Atraumatic Eyes: Normal Pupils: PERRL - Respiratory Respiratory status: No respiratory distress Chest status: Nontender Breath sounds: Normal Chest palpation: Normal - Cardiovascular Rhythm: Regular Heart sounds: Normal auscultation Murmur: No - Abdominal Inspection: Normal Distension: No distension Bowel sounds: Normal Tenderness: Nontender Organomegaly: No organomegaly - Back Back: Normal, Nontender - Extremities General upper extremity: Normal inspection, Nontender, Normal color, Normal ROM, Normal temperature General lower extremity: Normal inspection, Nontender, Normal color, Normal ROM, Normal temperature, Normal weight bearing. No: Tara's sign - Neurological Neuro grossly intact: Yes Cognition: Normal Orientation: AAOx4 [place] Coma Scale Eye Opening: Spontaneous [place] Coma Scale Verbal: Oriented [place] Coma Scale Motor: Obeys Commands [place] Coma Scale Total: 15 Speech: Normal Motor strength normal: LUE, RUE, LLE, RLE Sensory: Normal - Psychological Associated symptoms: Normal affect, Normal mood - Skin Skin Temperature: Warm Skin Moisture: Dry Skin Color: Normal Course - Re-evaluation Re-evalutation: 08/07/19 10:42 MDM Elderly female with COPD has exacerbation likely. No sign of acute cardiac event. Discussed follow up with her and she expressed understanding. Her allergy to prednisone is it gives her a headache. I feel decadron is reasonable. Will discharge with refill of albuterol and decadron. Discussed follow up and she expressed understanding. - Vital Signs Vital signs: Temp Pulse Resp BP Pulse Ox 97.9 F 61 20 175/86 H 99 08/07/19 03:45 08/07/19 03:45 08/07/19 03:45 08/07/19 03:45 08/07/19 03:45 - Laboratory Result Diagrams: 08/07/19 05:16 08/07/19 05:16 Laboratory results interpreted by me: 08/07/19 08/07/19 05:16 05:16 WBC 3.6 L RBC 3.54 L Hgb 10.9 L Hct 32.0 L RDW 15.9 H Eos % (Auto) 8.6 H Absolute Neuts (auto) 1.4 L Seg Neutrophils % 39.7 L Est GFR (MDRD) Non-Af 51 L - Diagnostic Test Radiology reviewed: Image reviewed, Reports reviewed - EKG Interpretation by Me EKG shows normal: Sinus rhythm Rate: Normal Rhythm: NSR [place]/QRS: Left axis deviation Voltage: Consistant with LVH - my interpretation. Discharge - Discharge Clinical Impression: COPD with exacerbation, Hypertension Condition: Good Disposition: HOME, SELF-CARE Instructions: Chronic Obstructive Lung Disease ([facility]) Additional Instructions: Your blood pressure was elevated here. Be sure and have it rechecked. Please return here for any problems or any concerns. Prescriptions: Dexamethasone [Decadron 0.5 Mg Tablet] 0.5 mg PO DAILY #7 tablet Albuterol Sulfate [Ventolin 0.083% Neb 2.5 mg/3 mL Ampul] 2.5 mg NEB Q6 30 Days #1 misc Referrals: FARHANA ALONSO MD [ACTIVE STAFF] - Follow up as needed
--- NOTE | 2019-08-07 09:09 | EKG REPORT ---
SEVERITY:- ABNORMAL ECG - SINUS RHYTHM LEFT VENTRICULAR HYPERTROPHY : Confirmed by: Real Anand 07-Aug-2019 09:08:26
[2019-08-07 11:25] VITALS: BP 199/97
== END 2019-08-07 11:37 | disposition home or self-care (01) ==
LOC: ER 02:37
DX: J44.1 Chronic obstructive pulmonary disease with (acute) exacerbation (principal); Z79.899 Other long term (current) drug therapy; I10 Essential (primary) hypertension; R05 Cough; R06.02 Shortness of breath; Z87.891 Personal history of nicotine dependence; Z88.8 Allergy status to other drugs, medicaments and biological substances
CPT/HCPCS: 36415; 71045; 80053; 83880; 84484; 85025; 93005; 93010; 99285

== ENCOUNTER 2019-09-11 12:39 | Emergency (ER) | payer MEDICARE ==
--- NOTE | 2019-09-11 12:55 | ER Document Report ---
ED Medical Screen (RME) - General Chief Complaint: Congestion Stated Complaint: CONGESTION Time Seen by Provider: 09/11/19 12:53 Primary Care Provider: FARHANA ALONSO MD [Primary Care Provider] - Follow up as needed Mode of Arrival: Ambulatory Information source: Patient Notes: 68-year-old female presented to ED for complaint of cough congestion COPD CHF asthma. She states for the last week she has been coughing waking up congested short of breath. O2 sat is 100% pulse is 66 at this time. Has had very mild congestion but lungs are clear. I have greeted and performed a rapid initial assessment of this patient. A comprehensive ED assessment and evaluation of the patient, analysis of test results and completion of medical decision making process will be conducted by an additional ED providers. TRAVEL OUTSIDE OF THE [place] IN LAST 30 DAYS: No - Related Data Allergies/Adverse Reactions: epinephrine Allergy (Verified 07/07/19 08:49) prednisone Allergy (Verified 07/07/19 08:49) Past Medical History - Past Medical History Cardiac Medical History: Reports: Hx Congestive Heart Failure, Hx Hypertension Pulmonary Medical History: Reports: Hx Asthma, Hx COPD Renal/ Medical History: Denies: Hx Peritoneal Dialysis Physical Exam - Vital signs Vitals: Temp Pulse Resp BP Pulse Ox 97.8 F 66 16 176/88 H 99 09/11/19 12:42 09/11/19 12:42 09/11/19 12:42 09/11/19 12:42 09/11/19 12:42 Course - Vital Signs Vital signs: Temp Pulse Resp BP Pulse Ox 97.8 F 66 16 176/88 H 99 09/11/19 12:42 09/11/19 12:42 09/11/19 12:42 09/11/19 12:42 09/11/19 12:42 Doctor's Discharge - Discharge Referrals: FARHANA ALONSO MD [Primary Care Provider] - Follow up as needed
--- NOTE | 2019-09-11 13:53 | RADIOLOGY REPORT (SQ) ---
EXAM DESCRIPTION: CHEST 2 VIEWS COMPLETED DATE/TIME: 09/11/2019 1:38 pm REASON FOR STUDY: short of breath copd chf COMPARISON: 08/07/2019 EXAM PARAMETERS: NUMBER OF VIEWS: two views TECHNIQUE: Digital Frontal and Lateral radiographic views of the chest acquired. RADIATION DOSE: NA LIMITATIONS: none FINDINGS: LUNGS AND PLEURA: Stable chronic interstitial changes with increased AP diameter and dawson ening of the diaphragms. No focal consolidation. No pleural effusion or pneumothorax. MEDIASTINUM AND HILAR STRUCTURES: No masses or contour abnormalities. HEART AND VASCULAR STRUCTURES: Enlarged heart, stable. Tortuous atherosclerotic thoracic aorta. . BONES: No acute findings. HARDWARE: None in the chest. OTHER: No other significant finding. IMPRESSION: Emphysematous change without evidence of acute cardiopulmonary process. TECHNICAL DOCUMENTATION: JOB ID: [id number] [employer]- All Rights Reserved Reading location - IP/workstation name: [email or web address]
[2019-09-11 13:54] LABS: ABSOLUTE EOSINOPHILS # (AUTO) 0.2 10^3/uL (0.0-0.6); ABSOLUTE LYMPHOCYTES (AUTO) 0.8 10^3/uL (0.5-4.7); ABSOLUTE MONOCYTES (AUTO) 0.3 10^3/uL (0.1-1.4); HEMOGLOBIN 11.3 g/dL (12.0-15.5); LYMPHOCYTES % (AUTO) 24.7 % (13-45); MEAN CORPUSCULAR HEMOGLOBIN 31.1 pg (27.0-33.4); MEAN CORPUSCULAR HGB CONC 34.4 g/dL (32.0-36.0); MEAN CORPUSCULAR VOLUME 90 fl (80-97); MONOCYTES % (AUTO) 8.9 % (3-13); PLATELET COUNT 236 10^3/uL (150-450); RED BLOOD COUNT 3.65 10^6/uL (3.72-5.28); RED CELL DISTRIBUTION WIDTH 16.1 % (11.5-14.0); SEGMENTED NEUTROPHILS % (AUTO) 59.4 % (42-78); TOTAL CELLS COUNTED % (AUTO) 100 %; WHITE BLOOD COUNT 3.3 10^3/uL (4.0-10.5)
[2019-09-11 14:13] LABS: ALKALINE PHOSPHATASE 58 U/L (38-126); ANION GAP 9 (5-19); ASPARTATE AMINO TRANSFERASE 20 U/L (14-36); BILIRUBIN,DIRECT 0.1 mg/dL (0.0-0.4); BILIRUBIN,TOTAL 0.6 mg/dL (0.2-1.3); BLOOD UREA NITROGEN 15 mg/dL (7-20); CALCIUM 9.6 mg/dL (8.4-10.2); CARBON DIOXIDE 28 mmol/L (22-30); CHLORIDE 104 mmol/L (98-107); CREATINE KINASE 93 U/L (30-135); GLUCOSE 97 mg/dL (75-110); POTASSIUM 3.8 mmol/L (3.6-5.0); TOTAL PROTEIN 7.2 g/dL (6.3-8.2)
[2019-09-11 14:24] LABS: CREATINE KINASE MB 1.17 ng/mL (<4.55); NT PRO BNP 377 pg/mL (<125); TROPONIN I < 0.012 ng/mL
[2019-09-11 14:46] LABS: INTERNATIONAL RATION (INR) 0.99; PROTHROMBIN TIME 13.1 SEC (11.4-15.4)
[2019-09-11 14:47] LABS: PARTIAL THROMBOPLASTIN TIME 26.6 SEC (23.5-35.8)
--- NOTE | 2019-09-11 15:42 | ER Document Report ---
ED General - General Chief Complaint: Congestion Stated Complaint: CONGESTION Time Seen by Provider: 09/11/19 12:53 Primary Care Provider: FARHANA ALONSO MD [Primary Care Provider] - Follow up tomorrow Mode of Arrival: Ambulatory Information source: Patient TRAVEL OUTSIDE OF THE [place]. IN LAST 30 DAYS: No - HPI Notes: 68-year-old female with a medical history of hypertension, COPD, asthma, CHF for complaints of congestion and cough that started approximately 1 day ago. Patient recently relocated from [place] to [facility] approximately 3 weeks ago, has not established with a primary care provider. Patient is a former smoker. Patient denies any chest pain, shortness of breath. Has not tried any xdqx-igp-eafwbmn medications. Reports worse with time, nothing makes better. Denies fevers, chills, chest pain,palpitations, shortness of breath, dyspnea, nausea, vomiting, diarrhea, abdominal pain, hematuria,blurred vision, double vision, loss of vision, speech changes, LH, dizziness, syncope, headaches, wheezing, ST, URI, neck pain, weakness, bowel or bladder dysfunction, saddle anesthesia, numbness or tingling in bilateral upper or lower extremities equally, muscle paralysis, weakness in bilateral upper or lower extremities equally or rash. - Related Data Allergies/Adverse Reactions: epinephrine Allergy (Verified 09/11/19 12:57) prednisone Allergy (Verified 09/11/19 12:57) Past Medical History - General Information source: Patient - Social History Smoking Status: Never Smoker Chew tobacco use (# tins/day): No Frequency of alcohol use: None Drug Abuse: None Family History: Reviewed & Not Pertinent Patient has suicidal ideation: No Patient has homicidal ideation: No - Past Medical History Cardiac Medical History: Reports: Hx Congestive Heart Failure, Hx Hypertension Pulmonary Medical History: Reports: Hx Asthma, Hx COPD Renal/ Medical History: Denies: Hx Peritoneal Dialysis Review of Systems - Review of Systems Constitutional: No symptoms reported EENT: No symptoms reported Cardiovascular: No symptoms reported Respiratory: No symptoms reported Gastrointestinal: See HPI Genitourinary: No symptoms reported Female Genitourinary: No symptoms reported Musculoskeletal: No symptoms reported Skin: No symptoms reported Hematologic/Lymphatic: No symptoms reported Neurological/Psychological: No symptoms reported Physical Exam - Vital signs Vitals: Temp Pulse Resp BP Pulse Ox 97.8 F 66 16 176/88 H 99 09/11/19 12:42 09/11/19 12:42 09/11/19 12:42 09/11/19 12:42 09/11/19 12:42 - Notes Notes: PHYSICAL EXAMINATION: reviewed vital signs by RN GENERAL: Well-appearing, well-nourished and in no acute distress. HEAD: Atraumatic, normocephalic. EYES: Pupils equal round and reactive to light, extraocular movements intact, conjunctiva are normal. ENT: Nares patent, oropharynx clear without exudates. Moist mucous membranes. NECK: Normal range of motion, supple without lymphadenopathy LUNGS: Breath sounds clear to auscultation bilaterally and equal. No wheezes rales or rhonchi. HEART: Regular rate and rhythm without murmurs ABDOMEN: Soft, nontender, nondistended abdomen. No guarding, no rebound. No masses appreciated. Female : deferred Musculoskeletal: Normal range of motion, no pitting or edema. No cyanosis. NEUROLOGICAL: Cranial nerves grossly intact. Normal speech, normal gait. Normal sensory, motor exams PSYCH: Normal mood, normal affect. SKIN: Warm, Dry, normal turgor, no rashes or lesions noted. Course - Re-evaluation Re-evalutation: 09/11/19 18:46 Afebrile, hypertensive but in no distress, patient states she did not take her lunch time blood pressure medications of clonidine and hydrochlorothiazide. Patient states that she has been congested, does have a history of COPD CHF and hypertension. Patient's BNP is 377, chest x-ray negative for any vascular congestion, pneumonia, pneumothorax. EKG negative for acute STEMI, no ST segment changes. 2 sets troponin yesterday therefore 2 troponins are sufficient and patient is not having any chest pain. CBC negative for leukocytosis or anemia, CMP negative for hepatic or renal dysfunction, no electrolyte disturbances. patient given clonidine 0.12 On reevaluation, with a pressure of 162/80. Patient states her allergy to prednisone is headaches. On reevaluation patient states that she is breathing much better after the DuoNeb. Advised to follow-up with primary care provider tomorrow, name and address given, prescription given for Ventolin inhaler. After performing a Medical Screening Examination, I estimate there is LOW risk for ACUTE CORONARY SYNDROME, PULMONARY EMBOLI, RESPIRATORY FAILURE, SEPSIS OR MENINGITIS, thus I consider the discharge disposition reasonable. I have reevaluated this patient multiple times and no significant life threatening changes are noted. The patient and I have discussed the diagnosis and risks, and we agree with discharging home with close follow-up. We also discussed returning to the Emergency Department immediately if new or worsening symptoms occur. We have discussed the symptoms which are most concerning (e.g., changing or worsening pain, trouble swallowing or breathing, neck stiffness, fever) that necessitate immediate return. - Vital Signs Vital signs: Temp Pulse Resp BP Pulse Ox 97.8 F 66 16 226/105 H 99 09/11/19 12:42 09/11/19 12:42 09/11/19 15:13 09/11/19 15:13 09/11/19 15:13 - Laboratory Result Diagrams: 09/11/19 13:27 09/11/19 13:27 Laboratory results interpreted by me: 09/11/19 09/11/19 09/11/19 13:27 13:27 13:27 WBC 3.3 L RBC 3.65 L Hgb 11.3 L Hct 33.0 L RDW 16.1 H Est GFR (MDRD) Non-Af 52 L NT-Pro-B Natriuret Pep 377 H Discharge - Discharge Clinical Impression: Cough Hypertension Qualifiers: Hypertension type: essential hypertension Qualified Code(s): I10 - Essential (primary) hypertension Disposition: HOME, SELF-CARE Instructions: Chronic Obstructive Lung Disease ([facility]), High Blood Pressure ([facility]), High Blood Pressure, Requiring Treatment ([facility]) Additional Instructions: Return immediately for any new or worsening symptoms. Follow up with primary care provider, call tomorrow to make followup appointment. Prescriptions: Albuterol Sulfate [Proair Respiclick] 90 mcg [facility] Q4HP PRN #1 [email or web address] PRN Reason: Referrals: FARHANA ALONSO MD [Primary Care Provider] - Follow up tomorrow
[2019-09-11] MEDS ORDERED: CLONIDINE HCL 0.1 MG TABLET PO ONE ×2 (16:09→17:59)
--- NOTE | 2019-09-11 16:53 | EKG REPORT ---
SEVERITY:- ABNORMAL ECG - SINUS RHYTHM LEFT AXIS DEVIATION PROBABLE LEFT VENTRICULAR HYPERTROPHY : Confirmed by: Calixto Torres MD 11-Sep-2019 16:53:01
[2019-09-11] MEDS ORDERED: IPRATROPIUM/ALBUTEROL 0.5-2.5 MG/3 ML AMPUL NEB ONE (18:00)
[2019-09-11 18:52] VITALS: BP 160/80
== END 2019-09-11 18:55 | disposition home or self-care (01) ==
LOC: ER 12:39
DX: R05 Cough (principal); I11.0 Hypertensive heart disease with heart failure; R09.81 Nasal congestion; J44.9 Chronic obstructive pulmonary disease, unspecified; I50.9 Heart failure, unspecified
CPT/HCPCS: 93005; 36415; 82553; 82550; 83735; 85025; 85610; 85730; 80053; 84484; 83880; 71046; 93010; A9270 ×2; J7620

== ENCOUNTER 2019-10-09 12:49 | Emergency (ER) | payer MEDICARE ==
--- NOTE | 2019-10-09 13:36 | ER Document Report ---
ED Medical Screen (RME) - General Chief Complaint: Fall Injury Stated Complaint: FALL/RIGHT EYE INJURY Time Seen by Provider: 10/09/19 13:22 Primary Care Provider: FARHANA ALONSO MD [Primary Care Provider] - Follow up as needed Notes: Patient is a 69-year-old female presents to the emergency department after an injury to her right eye. Patient voices she had fallen asleep. States she excellently fell to her right side and hit her right eye on the bed railing. Patient voices she did not pass out. Patient voices she immediately had pain in her right eye and cannot see out of the right eye. Patient does voice a history of glaucoma. GENERAL: Alert, interacts well. No acute distress. HEAD: Normocephalic, atraumatic. EYES: left pupils equal, round, and reactive to light, extraocular movements intact. Unable to fully visualize right iris or pupil as patient voices it hurts to completely open her eye. Conjunctival is erythematous, swollen, bulging. Discussed this case with my attending Dr. Sevilla suggesting CT orbits without contrast at this time. Patient was immediately brought to CT and charge nurse notified for room placement. I have greeted and performed a rapid initial assessment of this patient. A comprehensive ED assessment and evaluation of the patient, analysis of test results and completion of the medical decision making process will be conducted by additional ED providers. I have specifically instructed the patient or family members with the patient to immediately return to any nursing staff should anything change in the patient's condition or with their chief complaint. This medical record was dictated with voice recognizing software. There may be grammatical, syntax errors that are unintended. TRAVEL OUTSIDE OF THE [place] IN LAST 30 DAYS: No - Related Data Allergies/Adverse Reactions: epinephrine Allergy (Verified 10/09/19 13:17) prednisone Allergy (Verified 10/09/19 13:17) Home Medications: [facility]/ Past Medical History - Social History Chew tobacco use (# tins/day): No Frequency of alcohol use: None Drug Abuse: None - Past Medical History Cardiac Medical History: Reports: Hx Congestive Heart Failure, Hx Hypertension Pulmonary Medical History: Reports: Hx Asthma, Hx COPD Renal/ Medical History: Denies: Hx Peritoneal Dialysis Physical Exam - Vital signs Vitals: Temp Pulse BP Pulse Ox 98.0 F 78 163/86 H 99 10/09/19 12:53 10/09/19 12:53 10/09/19 12:53 10/09/19 12:53 Course - Vital Signs Vital signs: Temp Pulse Resp BP Pulse Ox 98.0 F 78 163/86 H 99 10/09/19 12:53 10/09/19 12:53 10/09/19 12:53 10/09/19 12:53 Doctor's Discharge - Discharge Referrals: FARHANA ALONSO MD [Primary Care Provider] - Follow up as needed
--- NOTE | 2019-10-09 15:02 | RADIOLOGY REPORT (SQ) ---
EXAM DESCRIPTION: CT ORBIT/SELLA WITHOUT COMPLETED DATE/TIME: 10/09/2019 1:55 pm REASON FOR STUDY: trauma/swelling conjunctiva COMPARISON: None. TECHNIQUE: Noncontrasted images through the orbits windowed for bone and soft tissue. Additional co gonzales and sagittal reconstructed images reviewed. All images stored on PACS. All CT scanners at this facility use dose modulation, iterative reconstruction, and/or weight based d osing when appropriate to reduce radiation dose to as low as reasonably achievable (ALARA). [facility]: Dose Right [facility]: CareDose [facility]: Dose Right [facility]: Teradose 4D [facility]: Smart Weesh RADIATION DOSE: CT Rad equipment meets quality standard of care and radiation dose reduction techniq ues were employed. CTDIvol: 30.4 mGy. DLP: 327 mGy-cm. mGy. LIMITATIONS: None. FINDINGS: FACIAL BONES: No fracture or bone lesion. ORBITS: On the right side, acute hemorrhage is present within the globe itself, along the dorsal aspe ct of the lens. This is best shown on axial images 19 through 22, coronal images 16 through 18, and sagittal image 13 through 15. This is likely in the anterior chamber extending into the anterior vit reous. The globe itself is round and grossly intact. No intra-ocular air or radiopaque foreign body . The right optic nerve, extraocular muscles and lacrimal apparatus is unremarkable. There is right-si ded preseptal soft tissue swelling. This is best shown on axial image 21. The left globe, optic nerve, extraocular muscles and orbital contents are normal. PARANASAL SINUSES: Clear. No significant mucosal thickening, mass or fluid. No nasal polyps. Maxilla ry sinus outlets are patent. SOFT TISSUES: No mass or edema. INFERIOR BRAIN: Limited view. No acute findings. OTHER: Findings discussed with Anselmo Cristobal in the emergency room at the time of dictation IMPRESSION: Acute hemorrhage within the right globe, along the dorsum of the lines. Hemorrhages lik radha both in the anterior chamber and vitreous chamber in the right globe Diffuse right-sided preseptal orbital soft tissue swelling No right-sided facial fractures. No sinusitis TECHNICAL DOCUMENTATION: JOB ID: [id number] Quality ID # [id number]: Final reports with documentation of one or more dose reduction techniques (e.g., Au tomated exposure control, adjustment of the mA and/or kV according to patient size, use of iterative reconstruction technique) 2010 [employer]- All Rights Reserved Reading location - IP/workstation name: [email or web address]
[2019-10-09 15:57] LABS: ABSOLUTE LYMPHOCYTES (AUTO) 0.7 10^3/uL (0.5-4.7); ABSOLUTE MONOCYTES (AUTO) 0.3 10^3/uL (0.1-1.4); TOTAL CELLS COUNTED % (AUTO) 100 %
--- NOTE | 2019-10-09 15:58 | ER Document Report ---
ED General - General Chief Complaint: Eye Injury Stated Complaint: FALL/RIGHT EYE INJURY Time Seen by Provider: 10/09/19 13:22 Primary Care Provider: FARHANA ALONSO MD [Primary Care Provider] - Follow up as needed TRAVEL OUTSIDE OF THE [place] IN LAST 30 DAYS: No - HPI Notes: Patient is a 69-year-old female with history of COPD, congestive heart failure, hypertension, glaucoma who presents complaining of right eye pain and loss of vision to the right eye with swelling associated status post injury prior to arrival. Patient states that she was sitting in her chair and fell asleep when her body fell to the right side and she hit her eye off of an iron rail of the bed next to her. Patient states that she had pain immediately and loss of vision. Patient states that she can still see some shadows, but nothing else. She is otherwise feeling well aside from having a little wheezing which is not uncommon for her. She is not on any blood thinning medications. She did not lose consciousness otherwise. No other areas of pain. Denies any headache, fever, head injury, neck pain, changes in speech/mentation/hearing, URI, sore throat, chest pain, palpitations, syncope, cough, shortness of breath, dyspnea, abdominal pain, nausea/vomiting/diarrhea, urinary retention, dysuria, hematuria, loss of control of bowel or bladder, numbness/tingling, saddle anesthesia, mus lio paralysis/weakness, or rash. - Related Data Allergies/Adverse Reactions: epinephrine Allergy (Verified 10/09/19 13:17) prednisone Allergy (Verified 10/09/19 13:17) Home Medications: [facility]/ Past Medical History - Social History Smoking Status: Unknown if Ever Smoked Frequency of alcohol use: None Drug Abuse: None Family History: Reviewed & Not Pertinent Patient has suicidal ideation: No Patient has homicidal ideation: No - Past Medical History Cardiac Medical History: Reports: Hx Congestive Heart Failure, Hx Hypertension Pulmonary Medical History: Reports: Hx Asthma, Hx COPD Renal/ Medical History: Denies: Hx Peritoneal Dialysis Review of Systems - Review of Systems -: Yes All other systems reviewed and negative Physical Exam - Vital signs Vitals: Temp Pulse BP Pulse Ox 98.0 F 78 163/86 H 99 10/09/19 12:53 10/09/19 12:53 10/09/19 12:53 10/09/19 12:53 - Notes Notes: PHYSICAL EXAMINATION: GENERAL: Well-appearing, well-nourished and in no acute distress. A&Ox4 HEAD: Atraumatic, normocephalic. no oreilly sign or hematoma. EYES: Pupils equal round and reactive to light, extraocular movements intact, sclera anicteric. The rt conjunctiva is swollen (best way to describe is from 3p-9p position a donut engulfing the irits/pupil) it is a dark pink color. Lt wnl. Visual acuity unable to obtain to the rt eye as pt cannot see. + mild tenderness to medial orbit area. No entrapment or raccoon eyes otherwise. ENT: EAC clear b/l. TM's intact b/l without erythema, fluid, or perforation. Nares patent and without discharge. oropharynx clear without exudates. No tonsilar hypertrophy or erythema. Moist mucous membranes. No sinus tenderness. Uvula midline. No palatine shift. No airway compromise. No drooling or hoarse ness. No hemotympanum. NECK: Normal range of motion, supple without lymphadenopathy. No rigidit y/meningismus. LUNGS: Scant wheeze b/l. no retractions. HEART: Regular rate and rhythm without murmurs, rubs, gallops. Musculoskeletal: Ext b/l: FROM to passive/active. Strength 5+/5. Extremities: No cyanosis, clubbing, or edema b/l. Peripheral pulses 2+. Capillary refill less than 3 seconds. NEUROLOGICAL: Cranial nerves grossly intact. Normal speech, normal gait. PSYCH: Normal mood, normal affect. SKIN: Warm, Dry, normal turgor, no rashes or lesions noted. Course - Re-evaluation Re-evalutation: 10/09/19 15:56 Patient is an afebrile, well-hydrated, 69-year-old female who presents with an acute hemorrhage within the right globe and hemorrhages likely both in the anterior chamber and vitreous chamber in the right lobe with preseptal orbital soft tissue swelling. There is no noted fracture. Vitals are otherwise acceptable. PE is otherwise unremarkable. Patient is nontoxic-appearing. Patient was given a breathing treatment for her mild wheezing. EKG was unremarkable. Labs have been ordered. I did call and speak with ophthalmology at [facility] who is accepted patient for an ED to ED transfer. Pt in agreement with plan. 10/09/19 18:15 Transport has arrived for pt. Pt has no new concerns or complaints. Vitals acceptable. Pt stable for transfer. - Vital Signs Vital signs: Temp Pulse Resp BP Pulse Ox 98.4 F 81 192/97 H 97 10/09/19 15:59 10/09/19 15:59 10/09/19 15:59 10/09/19 15:59 - Laboratory Result Diagrams: 10/09/19 15:45 10/09/19 15:45 Laboratory results interpreted by me: 10/09/19 10/09/19 15:45 15:45 WBC 3.4 L Hct 35.9 L RDW 16.2 H Est GFR ( Amer) 59 L Est GFR (MDRD) Non-Af 48 L Discharge - Discharge Clinical Impression: Injury of globe of right eye Qualifiers: Encounter type: initial encounter Qualified Code(s): S05.91XA - Unspecified injury of right eye and orbit, initial encounter Condition: Stable Disposition: [facility] Referrals: FARHANA ALONSO MD [Primary Care Provider] - Follow up as needed
[2019-10-09] MEDS ORDERED: CLONIDINE HCL 0.1 MG TABLET PO ONE (16:01)
[2019-10-09] MEDS ORDERED: IPRATROPIUM/ALBUTEROL 0.5-2.5 MG/3 ML AMPUL NEB ONE (16:02)
[2019-10-09 16:04] LABS: INTERNATIONAL RATION (INR) 0.92; PROTHROMBIN TIME 12.4 SEC (11.4-15.4)
[2019-10-09 16:05] LABS: PARTIAL THROMBOPLASTIN TIME 27.1 SEC (23.5-35.8)
[2019-10-09 16:15] LABS: ABSOLUTE EOSINOPHILS # (AUTO) 0.1 10^3/uL (0.0-0.6); ABSOLUTE NEUT (AUTO) 2.2 10^3/uL (1.7-8.2); ALBUMIN 4.5 g/dL (3.5-5.0); ALKALINE PHOSPHATASE 67 U/L (38-126); ANION GAP 10 (5-19); ASPARTATE AMINO TRANSFERASE 23 U/L (14-36); BILIRUBIN,TOTAL 0.5 mg/dL (0.2-1.3); BLOOD UREA NITROGEN 20 mg/dL (7-20); CALCIUM 9.9 mg/dL (8.4-10.2); CARBON DIOXIDE 27 mmol/L (22-30); CHLORIDE 102 mmol/L (98-107); EOSINOPHILS % (AUTO) 4.1 % (0-6); GLUCOSE 103 mg/dL (75-110); HEMATOCRIT 35.9 % (36.0-47.0); HEMOGLOBIN 12.2 g/dL (12.0-15.5); LYMPHOCYTES % (AUTO) 21.3 % (13-45); MEAN CORPUSCULAR HEMOGLOBIN 30.7 pg (27.0-33.4); MEAN CORPUSCULAR HGB CONC 34.1 g/dL (32.0-36.0); MEAN CORPUSCULAR VOLUME 90 fl (80-97); MONOCYTES % (AUTO) 8.4 % (3-13); PLATELET COUNT 240 10^3/uL (150-450); RED BLOOD COUNT 3.97 10^6/uL (3.72-5.28); RED CELL DISTRIBUTION WIDTH 16.2 % (11.5-14.0); SEGMENTED NEUTROPHILS % (AUTO) 65.2 % (42-78); TOTAL PROTEIN 7.9 g/dL (6.3-8.2); WHITE BLOOD COUNT 3.4 10^3/uL (4.0-10.5)
[2019-10-09 16:51] VITALS: BP 192/97
--- NOTE | 2019-10-10 12:02 | EKG REPORT ---
SEVERITY:- ABNORMAL ECG - SINUS RHYTHM LEFT VENTRICULAR HYPERTROPHY : Confirmed by: Rael Anand 10-Oct-2019 12:01:29
== END 2019-10-09 18:10 | disposition short-term general hospital (02) ==
LOC: ER 12:49
DX: S05.91XA Unspecified injury of right eye and orbit, initial encounter (principal); H57.11 Ocular pain, right eye; H57.89 Other specified disorders of eye and adnexa; W22.8XXA Striking against or struck by other objects, initial encounter; J44.9 Chronic obstructive pulmonary disease, unspecified; I50.9 Heart failure, unspecified; I11.0 Hypertensive heart disease with heart failure
CPT/HCPCS: 93005; 94640; 99285; 36415; 85025; 85610; 85730; 80053; 70480; 93010; A9270 ×2; J7620

== ENCOUNTER → 2020-02-19 | Outpatient (CLI) | payer MEDICARE, MEDICAID ==
--- NOTE | 2020-02-19 16:10 | RADIOLOGY REPORT (SQ) ---
EXAM DESCRIPTION: CHEST PA/LATERAL IMAGES COMPLETED DATE/TIME: 02/19/2020 3:42 pm REASON FOR STUDY: MODERATE PERSISTENT ASTHMA, UNCOMPLICATED J45.40 MODERATE PERSISTENT ASTHMA, UNCO MPLICATED COMPARISON: None. NUMBER OF VIEWS: Two view. TECHNIQUE: Frontal and lateral radiographic views of the chest acquired. LIMITATIONS: None. FINDINGS: LUNGS AND PLEURA: No opacities, masses or pneumothorax. No pleural effusion. Attenuated bl ood vessels and flattened chacho-diaphragms. MEDIASTINUM AND HILAR STRUCTURES: No masses. No contour abnormalities. HEART AND VASCULAR STRUCTURES: Stable mild cardiomegaly. Ectatic thoracic aorta. No evidence for fa ilure. BONES: No acute findings. HARDWARE: None in the chest. OTHER: No other significant finding. IMPRESSION: COPD. STABLE MILD CARDIOMEGALY. NO ACUTE RADIOGRAPHIC FINDING IN THE CHEST. TECHNICAL DOCUMENTATION: JOB ID: [id number] 2010 [employer]- All Rights Reserved Reading location - IP/workstation name: [email or web address]
== END ==
LOC: OD 15:03
PROVIDERS: ATTEND Allergy & Immunology
DX: J45.40 Moderate persistent asthma, uncomplicated (principal); J44.9 Chronic obstructive pulmonary disease, unspecified; I51.7 Cardiomegaly
CPT/HCPCS: 71046

== ENCOUNTER 2020-03-04 14:04 | Emergency (ER) | payer MEDICARE, MEDICAID ==
[2020-03-04] MEDS ORDERED: IPRATROPIUM/ALBUTEROL 0.5-2.5 MG/3 ML AMPUL NEB ONE (15:03)
[2020-03-04] MEDS ORDERED: ALBUTEROL SULFATE 0.083% NEB 2.5 MG/3 ML AMPUL NEB ONE (16:00)
[2020-03-04] MEDS ORDERED: PREDNISONE 20 MG TABLET PO ONE (16:00)
--- NOTE | 2020-03-04 16:01 | ER Document Report ---
HPI - HPI Time Seen by Provider: 03/04/20 14:52 Pain Level: 0 Notes: Patient with c/o asthma/COPD exacerbation. Pt reports using her inhaler and nebulizer at home with minimal relief. Denies fevers. Reports mild shortness of breath. Denies recent travel or exposure to COVID-19. - RESPIRATORY Respiratory: REPORTS: Trouble Breathing - REPRODUCTIVE Reproductive: DENIES: : Past Medical History - General Information source: Patient - Social History Smoking Status: Never Smoker Chew tobacco use (# tins/day): No Frequency of alcohol use: None Drug Abuse: Bath salts Family History: Reviewed & Not Pertinent Patient has suicidal ideation: No Patient has homicidal ideation: No - Past Medical History Cardiac Medical History: Reports: Hx Congestive Heart Failure, Hx Hypertension Pulmonary Medical History: Reports: Hx Asthma, Hx COPD Renal/ Medical History: Denies: Hx Peritoneal Dialysis Vertical Provider Document - CONSTITUTIONAL Notes: PHYSICAL EXAMINATION: GENERAL: Well-appearing, well-nourished and in no acute distress. HEAD: Atraumatic, normocephalic. EYES: Pupils equal round and reactive to light, extraocular movements intact, conjunctiva are normal. ENT: Nares patent, oropharynx clear without exudates. Moist mucous membranes. NECK: Normal range of motion, supple without lymphadenopathy LUNGS: Expiratory wheezes noted bilaterally. HEART: Regular rate and rhythm without murmurs ABDOMEN: Soft, nontender, nondistended abdomen. No guarding, no rebound. No masses appreciated. Female : deferred Musculoskeletal: Normal range of motion, no pitting or edema. No cyanosis. NEUROLOGICAL: Cranial nerves grossly intact. Normal speech, normal gait. Normal sensory, motor exams PSYCH: Normal mood, normal affect. SKIN: Warm, Dry, normal turgor, no rashes or lesions noted. - INFECTION CONTROL TRAVEL OUTSIDE OF THE [place] IN LAST 30 DAYS: No Course - Re-evaluation Re-evalutation: Patient has an allergy to prednisone but states that it just makes her have a headache. Patients wheezes have resolved after breathing treatments in the ED. Patient reports ready for discharge. Will follow-up with PCP. - Vital Signs Vital signs: Temp Pulse Resp BP Pulse Ox 98.4 F 03/04/20 14:39 Discharge - Discharge Clinical Impression: COPD exacerbation Condition: Stable Disposition: HOME, SELF-CARE Additional Instructions: You were seen for a COPD/asthma exacerbation. Your symptoms improved with treatment here in the emergency department. However, it is very important that you return to the emergency department immediately if you began to have worsening difficulty breathing that does not respond to your normal home nebulizers. You are also being sent home on a five-day course of steroids that you should start taking tomorrow. Please also take the antibiotics as prescribed. Please also follow closely with your primary care physician. You should eturn to emergency department if you develop fever greater than 101, persistent cough, persistent vomiting, pass out, or any other symptoms that are concerning to you. Prescriptions: Prednisone [Deltasone 20 mg Tablet] 2 tab PO DAILY 5 Days #10 tablet Doxycycline Hyclate [Vibramycin 100 mg Tablet] 100 mg PO BID #10 tablet Referrals: FARHANA ALONSO MD [Primary Care Provider] - Follow up as needed
[2020-03-04 17:28] VITALS: BP 130/76
== END 2020-03-04 17:28 | disposition home or self-care (01) ==
LOC: ER 14:04
DX: J44.1 Chronic obstructive pulmonary disease with (acute) exacerbation (principal); Z79.899 Other long term (current) drug therapy; I10 Essential (primary) hypertension; F19.10 Other psychoactive substance abuse, uncomplicated; Z88.8 Allergy status to other drugs, medicaments and biological substances
CPT/HCPCS: 94640 ×2; 99284; A9270 ×3; J7512; J7620

== ENCOUNTER 2020-07-01 10:40 | Emergency (ER) | payer MEDICARE, MEDICAID ==
[2020-07-01] MEDS ORDERED: MORPHINE SULFATE 10 MG/ML INJ IV ONE (11:54)
[2020-07-01] MEDS ORDERED: KETOROLAC TROMETHAMINE 60 MG/2 ML SDV IM ONE (12:33)
[2020-07-01 12:55] LABS: ABSOLUTE EOSINOPHILS # (AUTO) 0.1 10^3/uL (0.0-0.6); ABSOLUTE LYMPHOCYTES (AUTO) 1.1 10^3/uL (0.5-4.7); ABSOLUTE MONOCYTES (AUTO) 0.4 10^3/uL (0.1-1.4); BASOPHILS % (AUTO) 1.3 % (0-2); EOSINOPHILS % (AUTO) 2.4 % (0-6); HEMATOCRIT 34.3 % (36.0-47.0); HEMOGLOBIN 11.7 g/dL (12.0-15.5); LYMPHOCYTES % (AUTO) 30.9 % (13-45); MEAN CORPUSCULAR HEMOGLOBIN 30.7 pg (27.0-33.4); MEAN CORPUSCULAR HGB CONC 34.1 g/dL (32.0-36.0); MEAN CORPUSCULAR VOLUME 90 fl (80-97); MONOCYTES % (AUTO) 10.5 % (3-13); PLATELET COUNT 247 10^3/uL (150-450); RED CELL DISTRIBUTION WIDTH 15.8 % (11.5-14.0); SEGMENTED NEUTROPHILS % (AUTO) 54.9 % (42-78); TOTAL CELLS COUNTED % (AUTO) 100 %; WHITE BLOOD COUNT 3.7 10^3/uL (4.0-10.5)
[2020-07-01 13:17] LABS: ALBUMIN 4.5 g/dL (3.5-5.0); ALKALINE PHOSPHATASE 71 U/L (38-126); ANION GAP 9 (5-19); ASPARTATE AMINO TRANSFERASE 27 U/L (14-36); BILIRUBIN,TOTAL 0.8 mg/dL (0.2-1.3); BLOOD UREA NITROGEN 14 mg/dL (7-20); CALCIUM 9.7 mg/dL (8.4-10.2); CARBON DIOXIDE 29 mmol/L (22-30); CHLORIDE 101 mmol/L (98-107); GLUCOSE 95 mg/dL (75-110); TOTAL PROTEIN 8.2 g/dL (6.3-8.2)
--- NOTE | 2020-07-01 14:50 | RADIOLOGY REPORT (SQ) ---
EXAM DESCRIPTION: CHEST SINGLE VIEW IMAGES COMPLETED DATE/TIME: 07/01/2020 1:30 pm REASON FOR STUDY: sob COMPARISON: 02/19/2020 EXAM PARAMETERS: NUMBER OF VIEWS: One view. TECHNIQUE: Single frontal radiographic view of the chest acquired. RADIATION DOSE: NA LIMITATIONS: None. FINDINGS: LUNGS AND PLEURA: Lungs are hyperinflated. No focal consolidation or pleural effusion. N o pneumothorax. MEDIASTINUM AND HILAR STRUCTURES: No masses. Contour normal. HEART AND VASCULAR STRUCTURES: Moderate cardiomegaly. No pulmonary vascular congestion. Tortuous de scending thoracic aorta is stable. BONES: No acute findings. HARDWARE: None in the chest. OTHER: No other significant finding. IMPRESSION: NO ACUTE RADIOGRAPHIC FINDING IN THE CHEST. TECHNICAL DOCUMENTATION: JOB ID: [id number] 2010 [employer]- All Rights Reserved Reading location - IP/workstation name: [email or web address]
--- NOTE | 2020-07-01 14:58 | ER Document Report ---
ED General - General Chief Complaint: Breathing Difficulty Stated Complaint: SHORTNESS OF BREATH/LEFT ARM PAIN Time Seen by Provider: 07/01/20 11:47 Primary Care Provider: FARHANA ALONSO MD [Primary Care Provider] - Follow up as needed Mode of Arrival: Ambulatory Information source: Patient TRAVEL OUTSIDE OF THE [place] IN LAST 30 DAYS: No - HPI Notes: Patient complains of shortness of breath and left shoulder pain. She states she has had this pain for several months as well as the shortness of breath. She states they are intermittent. Nothing seems to make them better or worse as far as the shortness of breath. As far as the pain she does get worse pain with movement of the left shoulder and better when she has resting. No chest pain. No cough cold congestion. No COVID exposures. No known trauma. No nausea vomiting diarrhea. The pain does radiate down her left arm and is a sharp pain. It is intermittent and moderate in intensity. - Related Data Allergies/Adverse Reactions: epinephrine Allergy (Verified 10/09/19 13:17) prednisone Allergy (Verified 10/09/19 13:17) Past Medical History - General Information source: Patient - Social History Smoking Status: Never Smoker Frequency of alcohol use: None Drug Abuse: None Family History: Reviewed & Not Pertinent - Past Medical History Cardiac Medical History: Reports: Hx Congestive Heart Failure, Hx Hypertension Pulmonary Medical History: Reports: Hx Asthma, Hx COPD Renal/ Medical History: Denies: Hx Peritoneal Dialysis Review of Systems - Review of Systems Constitutional: denies: Chills, Fever Cardiovascular: denies: Chest pain, Palpitations Respiratory: Short of breath. denies: Hemoptysis -: Yes All other systems reviewed and negative Physical Exam - Vital signs Vitals: Temp Pulse Resp BP Pulse Ox 98.3 F 67 18 174/90 H 100 07/01/20 10:46 07/01/20 10:46 07/01/20 10:46 07/01/20 10:46 07/01/20 10:46 Interpretation: Normal, Hypertensive - General General appearance: Appears well, Alert - HEENT Head: Normocephalic, Atraumatic Eyes: Normal Pupils: PERRL - Respiratory Respiratory status: No respiratory distress Chest status: Nontender Breath sounds: Normal Chest palpation: Normal - Cardiovascular Rhythm: Regular Heart sounds: Normal auscultation Murmur: No - Abdominal Inspection: Normal Distension: No distension Bowel sounds: Normal Tenderness: Nontender Organomegaly: No organomegaly - Back Back: Normal, Nontender - Extremities General upper extremity: Normal inspection, Normal color, Normal temperature, Ot her - Patient has some mild diffuse left shoulder pain to palpation. Inspection of the area is normal. She does have range of motion although somewhat limited by pain of this left shoulder. She is neurovascular intact distally. There is no swelling erythema or induration appreciated. General lower extremity: Normal inspection, Nontender, Normal color, Normal ROM, Normal temperature, Normal weight bearing. No: Tara's sign - Neurological Neuro grossly intact: Yes Cognition: Normal Orientation: AAOx4 Sahra Coma Scale Eye Opening: Spontaneous Sahra Coma Scale Verbal: Oriented [place] Coma Scale Motor: Obeys Commands Sahra Coma Scale Total: 15 Speech: Normal Motor strength normal: LUE, RUE, LLE, RLE Sensory: Normal - Psychological Associated symptoms: Normal affect, Normal mood - Skin Skin Temperature: Warm Skin Moisture: Dry Skin Color: Normal Course - Re-evaluation Re-evalutation: 07/01/20 14:55 Patient complains of left shoulder pain and shortness of breath that is been ongoing for several months. I cannot find any acute pathology to explain this other than exam seems most consistent with a bursitis or arthritis type of pain in the left shoulder. Patient has no ischemic EKG changes. She has no significant laboratory abnormalities. Chest x-ray also shows no acute process. I wanted to order a CTA but patient refused a CTA. She also refused a CT without contrast. I explained her that I could miss pathology such as a cancer, a blood clot, or a infection. I explained that these things could kill her or cause her permanent problems. She states she understood that but still did not want to have the CAT scan because she did not like going through the machine. - Vital Signs Vital signs: Temp Pulse Resp BP Pulse Ox 98.3 F 67 18 174/90 H 100 07/01/20 10:46 07/01/20 10:46 07/01/20 10:46 07/01/20 10:46 07/01/20 10:46 - Laboratory Result Diagrams: 07/01/20 12:45 07/01/20 12:45 Laboratory results interpreted by me: 07/01/20 07/01/20 12:45 12:45 WBC 3.7 L Hgb 11.7 L Hct 34.3 L RDW 15.8 H Est GFR (MDRD) Non-Af 52 L - Diagnostic Test Radiology reviewed: Image reviewed, Reports reviewed - EKG Interpretation by Me EKG shows normal: Sinus rhythm Rate: Bradycardia - 58 Rhythm: NSR Voltage: Consistent with [facility]H Discharge - Discharge Clinical Impression: Left shoulder pain Qualifiers: Chronicity: acute Qualified Code(s): M25.512 - Pain in left shoulder Condition: Stable Disposition: HOME, SELF-CARE Instructions: Arm Pain, Nonspecific ([facility]) Additional Instructions: Please call your primary doctor as soon as possible to arrange follow up Prescriptions: Hydrocodone/Acetaminophen [[place] 5-325 mg Tablet] 1 tab PO Q6 PRN 3 Days #12 tablet PRN Reason: For Pain Referrals: FARHANA ALONSO MD [Primary Care Provider] - Follow up tomorrow
[2020-07-01] MEDS ORDERED: CLONIDINE HCL 0.2 MG TABLET PO ONE (15:45)
[2020-07-01 17:06] VITALS: BP 154/86
--- NOTE | 2020-07-01 18:36 | EKG REPORT ---
SEVERITY:- ABNORMAL ECG - SINUS RHYTHM LEFT VENTRICULAR HYPERTROPHY : Confirmed by: Real Anand 01-Jul-2020 18:36:27
== END 2020-07-01 17:36 | disposition home or self-care (01) ==
LOC: ER 10:40
DX: M25.512 Pain in left shoulder (principal); R06.02 Shortness of breath; M79.602 Pain in left arm; Z88.8 Allergy status to other drugs, medicaments and biological substances; I11.0 Hypertensive heart disease with heart failure; I50.9 Heart failure, unspecified; J44.9 Chronic obstructive pulmonary disease, unspecified
CPT/HCPCS: 93005; 99285; 96372; 96374; 36415; 85025; 80053; 84484; 71045; 93010; A9270; J1885

== ENCOUNTER 2020-09-01 16:42 | Emergency (ER) | payer MEDICARE, MEDICAID ==
[2020-09-01] MEDS ORDERED: IPRATROPIUM/ALBUTEROL 0.5-2.5 MG/3 ML AMPUL NEB ONE (18:06)
[2020-09-01] MEDS ORDERED: DEXAMETHASONE SOD PHOS INJ 10 MG/1 ML VIAL IV ONE (18:07)
--- NOTE | 2020-09-01 18:10 | ER Document Report ---
ED Respiratory Problem - General Chief Complaint: Shortness Of Breath Stated Complaint: SHORT OF BREATH,MUSCLE PAIN Time Seen by Provider: 09/01/20 17:32 Primary Care Provider: FARHANA ALONSO MD [Primary Care Provider] - Follow up as needed Information source: Patient Notes: 69-year-old black female arrives with chief complaint of several day history of shortness of breath without any cough or history of luo virus or influenza virus. Patient advises she has asthma and has been using her handheld nebulizer and her mechanical nebulizer machine more frequently over the last several days. Her blood pressure has risen as well today. She takes medication for this as well. She reports she has an allergy to prednisone because it causes headaches. 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 TRAVEL OUTSIDE OF THE [place] IN LAST 30 DAYS: No - HPI Patient complains to provider of: COPD, Short of breath Onset: Last week Duration: Intermittent episodes - Related Data Allergies/Adverse Reactions: epinephrine Allergy (Verified 09/01/20 17:51) prednisone Allergy (Verified 09/01/20 17:51) Home Medications: Nebulized albuterol. clonadine, lasix Past Medical History - General Information source: Patient - Social History Smoking Status: Never Smoker Cigarette use (# per day): No Chew tobacco use (# tins/day): No Smoking Education Provided: No Frequency of alcohol use: None Drug Abuse: None Lives with: Family Family History: Reviewed & Not Pertinent Patient has suicidal ideation: No Patient has homicidal ideation: No - Past Medical History Cardiac Medical History: Reports: Hx Congestive Heart Failure, Hx Hypertension Pulmonary Medical History: Reports: Hx Asthma, Hx COPD Renal/ Medical History: Denies: Hx Peritoneal Dialysis Review of Systems - Review of Systems Constitutional: No symptoms reported EENT: No symptoms reported Cardiovascular: No symptoms reported Respiratory: See HPI, Short of breath, Wheezing Gastrointestinal: No symptoms reported Genitourinary: No symptoms reported Female Genitourinary: No symptoms reported Musculoskeletal: No symptoms reported Skin: No symptoms reported Hematologic/Lymphatic: No symptoms reported Neurological/Psychological: No symptoms reported Physical Exam - Vital signs Vitals: Temp Pulse Resp Pulse Ox 98.3 F 60 14 100 09/01/20 17:42 09/01/20 17:42 09/01/20 17:42 09/01/20 17:42 Interpretation: Normal - General General appearance: Appears well, Alert - HEENT Head: Normocephalic, Atraumatic Eyes: Normal Pupils: PERRL - Respiratory Respiratory status: No respiratory distress Chest status: Nontender Breath sounds: Normal Chest palpation: Normal - Cardiovascular Rhythm: Regular Heart sounds: Normal auscultation Murmur: No - Abdominal Inspection: Normal Distension: No distension Bowel sounds: Normal Tenderness: Nontender Organomegaly: No organomegaly - Rectal Hemorrhoids: Other - deferred - Genitourinary Biman[place] exam: Other - deferred - Back Back: Normal, Nontender - Extremities General upper extremity: Normal inspection, Nontender, Normal color, Normal ROM, Normal temperature General lower extremity: Normal inspection, Nontender, Normal color, Normal ROM, Normal temperature, Normal weight bearing. No: Tara's sign - Neurological Neuro grossly intact: Yes Cognition: Normal Orientation: AAOx4 Sahra Coma Scale Eye Opening: Spontaneous [place] Coma Scale Verbal: Oriented [place] Coma Scale Motor: Obeys Commands Sahra Coma Scale Total: 15 Speech: Normal Motor strength normal: LUE, RUE, LLE, RLE Sensory: Normal - Psychological Associated symptoms: Normal affect, Normal mood - Skin Skin Temperature: Warm Skin Moisture: Dry Skin Color: Normal Course - Vital Signs Vital signs: Temp Pulse Resp BP Pulse Ox 98.3 F 60 16 99 09/01/20 17:42 09/01/20 17:42 09/01/20 18:00 09/01/20 18:00 - Laboratory Result Diagrams: 09/01/20 18:06 09/01/20 20:00 Laboratory results interpreted by me: 09/01/20 09/01/20 09/01/20 18:06 19:06 20:00 WBC 3.5 L RBC 3.69 L Hgb 11.4 L Hct 33.4 L RDW 15.6 H Absolute Neuts (auto) 1.6 L ABG pO2 73.8 L ABG HCO3 28.2 H ABG Total CO2 29.5 H Potassium 3.4 L Est GFR (MDRD) Non-Af 50 L NT-Pro-B Natriuret Pep 09/01/20 20:00 WBC RBC Hgb Hct RDW Absolute Neuts (auto) ABG pO2 ABG HCO3 ABG Total CO2 Potassium Est GFR (MDRD) Non-Af NT-Pro-B Natriuret Pep 456 H - Diagnostic Test Radiology reviewed: Reports reviewed - Cardiomegaly Critical Care Note - Critical Care Note Comments: Patient much improved by time of discharge. Discharge - Discharge Clinical Impression: Elevated brain natriuretic peptide (BNP) level RAD (reactive airway disease) Qualifiers: Asthma severity: mild Asthma persistence: unspecified Qualified Code(s): J45.909 - Unspecified asthma, uncomplicated Condition: Stable Disposition: HOME, SELF-CARE Additional Instructions: Follow-up with personal doctor this week return to ER if symptoms persist or worsen take medicines as directed encourage fluids up to 1/2 quart daily. Prescriptions: Dexamethasone [Decadron 4 Mg Tablet] 4 mg PO DAILY #5 tablet Furosemide [Lasix 20 mg Tablet] 20 mg PO DAILY #3 tablet Referrals: FARHANA ALONSO MD [Primary Care Provider] - Follow up as needed
[2020-09-01 18:25] LABS: ABSOLUTE BASOPHILS # (AUTO) 0.1 10^3/uL (0.0-0.2); ABSOLUTE EOSINOPHILS # (AUTO) 0.1 10^3/uL (0.0-0.6); ABSOLUTE LYMPHOCYTES (AUTO) 1.4 10^3/uL (0.5-4.7); ABSOLUTE MONOCYTES (AUTO) 0.4 10^3/uL (0.1-1.4); ABSOLUTE NEUT (AUTO) 1.6 10^3/uL (1.7-8.2); BASOPHILS % (AUTO) 1.4 % (0-2); HEMATOCRIT 33.4 % (36.0-47.0); HEMOGLOBIN 11.4 g/dL (12.0-15.5); LYMPHOCYTES % (AUTO) 39.1 % (13-45); MEAN CORPUSCULAR HEMOGLOBIN 30.8 pg (27.0-33.4); MEAN CORPUSCULAR VOLUME 91 fl (80-97); MONOCYTES % (AUTO) 10.9 % (3-13); PLATELET COUNT 230 10^3/uL (150-450); RED BLOOD COUNT 3.69 10^6/uL (3.72-5.28); RED CELL DISTRIBUTION WIDTH 15.6 % (11.5-14.0); SEGMENTED NEUTROPHILS % (AUTO) 44.6 % (42-78); TOTAL CELLS COUNTED % (AUTO) 100 %; WHITE BLOOD COUNT 3.5 10^3/uL (4.0-10.5)
--- NOTE | 2020-09-01 18:42 | RADIOLOGY REPORT (SQ) ---
EXAM DESCRIPTION: CHEST SINGLE VIEW IMAGES COMPLETED DATE/TIME: 09/01/2020 6:30 pm REASON FOR STUDY: sob COMPARISON: 07/01/2020 EXAM PARAMETERS: NUMBER OF VIEWS: One view. TECHNIQUE: Single frontal radiographic view of the chest acquired. RADIATION DOSE: NA LIMITATIONS: None. FINDINGS: LUNGS AND PLEURA: No opacities, masses or pneumothorax. No pleural effusion. MEDIASTINUM AND HILAR STRUCTURES: No masses. Contour normal. HEART AND VASCULAR STRUCTURES: Cardiomegaly. No anitha pulmonary edema. BONES: No acute findings. HARDWARE: None in the chest. OTHER: No other significant finding. IMPRESSION: Cardiomegaly without pulmonary edema. TECHNICAL DOCUMENTATION: JOB ID: [id number] 2010 [employer]- All Rights Reserved Reading location - IP/workstation name: [email or web address]
[2020-09-01 19:26] LABS: ARTERIAL BLOOD BASE EXCESS 3.3 mmol/L; ARTERIAL BLOOD H2CO3 1.32 mmol/L (1.05-1.35); ARTERIAL BLOOD HCO3 28.2 mmol/L (20-24); ARTERIAL BLOOD O2 SATURATION 95.1 % (94-98); ARTERIAL BLOOD PH 7.42 (7.35-7.45); ARTERIAL BLOOD PO2 73.8 mmHg (80-100); ARTERIAL BLOOD TOTAL CO2 29.5 mmol/L (21-25)
[2020-09-01 19:27] LABS: ARTERIAL BLOOD FIO2 ROOM AIR
[2020-09-01 20:30] LABS: ALBUMIN 4.5 g/dL (3.5-5.0); ALKALINE PHOSPHATASE 84 U/L (38-126); ANION GAP 11 (5-19); ASPARTATE AMINO TRANSFERASE 23 U/L (14-36); BILIRUBIN,DIRECT 0.3 mg/dL (0.0-0.4); BILIRUBIN,TOTAL 0.7 mg/dL (0.2-1.3); BLOOD UREA NITROGEN 19 mg/dL (7-20); CALCIUM 9.8 mg/dL (8.4-10.2); CARBON DIOXIDE 25 mmol/L (22-30); CHLORIDE 102 mmol/L (98-107); GLUCOSE 104 mg/dL (75-110); POTASSIUM 3.4 mmol/L (3.6-5.0); TOTAL PROTEIN 8.1 g/dL (6.3-8.2)
[2020-09-01 20:41] LABS: NT PRO BNP 456 pg/mL (<125)
[2020-09-01 20:43] LABS: TROPONIN I < 0.012 ng/mL
[2020-09-01] MEDS ORDERED: FUROSEMIDE 20 MG TABLET PO ONE (22:19)
[2020-09-01] MEDS ORDERED: CLONIDINE HCL 0.2 MG TABLET PO ONE (22:35)
[2020-09-02 01:16] VITALS: BP 187/103
== END 2020-09-02 01:28 | disposition home or self-care (01) ==
LOC: ER 16:42
DX: J44.9 Chronic obstructive pulmonary disease, unspecified (principal); I11.0 Hypertensive heart disease with heart failure; I50.9 Heart failure, unspecified; R79.89 Other specified abnormal findings of blood chemistry; Z79.899 Other long term (current) drug therapy; Z88.8 Allergy status to other drugs, medicaments and biological substances
CPT/HCPCS: 94640; 99284; 96374; 36415; 82803; 85025; 80053; 84484; 83880; 71045; A9270 ×2; J1100